=== PATIENT | male | born 1960 | race Caucasian/White ===

== ENCOUNTER 2017-08-31 07:50 | Emergency (ER) | payer SELFPAY ==
[2017-08-31 07:56] VITALS: RESP 18; TEMP 97.9
--- NOTE | 2017-08-31 08:12 | ED ---
SOB HPI - General Chief Complaint: Shortness of Breath Stated Complaint: Difficulty Breathing Time Seen by Provider: 08/31/17 07:57 Source: patient, RN notes reviewed Mode of arrival: ambulatory Limitations: no limitations - History of Present Illness Initial Comments: This is a 57-year-old male with a history of smoking for many years but no known diagnosis of any heart or lung disease who states he's had difficulty breathing exertional dyspnea cough with keating green thick phlegm and some occasional spots of bright red blood in it for the past 4-5 days. He states the friend did give him penicillin 500 mg he states she's taken a total of 3500 mg SR with no improvement. He has had some rhinorrhea no sore throat no earaches no chest pain no other modifying symptoms. MD Complaint: shortness of breath, cough - Related Data Previous Rx's Medication Instructions Recorded Ipratropium/Albuterol Sulfate 1 puff INHALATION QID #1 inhaler 08/31/17 [Combivent Respimat Inhaler] methylPREDNISolone Dose Pack 4 mg PO DIRECTED #21 package 08/31/17 [Medrol Dose Pack] Allergies Allergy/AdvReac Type Severity Reaction Status Date / Time Sulfa (Sulfonamide Allergy Anaphylaxis Verified 08/31/17 07:56 Antibiotics) Review of Systems ROS Statement: Those systems with pertinent positive or pertinent negative responses have been documented in the HPI. ROS Other: All systems not noted in ROS Statement are negative. Past Medical History Past Medical History: No Reported History History of Any Multi-Drug Resistant Organisms: None Reported Past Surgical History: Hernia Repair Past Psychological History: No Psychological Hx Reported Smoking Status: Current every day smoker Past Alcohol Use History: Occasional Past Drug Use History: None Reported General Exam - General Exam Comments Initial Comments: This is a well-developed well-nourished awake alert oriented times 3 male Limitations: no limitations General appearance: alert, anxious Head exam: Present: atraumatic, normocephalic, normal inspection Eye exam: Present: normal appearance, PERRL, EOMI. Absent: scleral icterus, conjunctival injection, periorbital swelling ENT exam: Present: mucous membranes dry Neck exam: Present: normal inspection. Absent: tenderness, meningismus, lymphadenopathy Respiratory exam: Present: decreased breath sounds. Absent: respiratory distress, wheezes, rales, rhonchi, stridor Cardiovascular Exam: Present: normal rhythm, tachycardia, normal heart sounds. Absent: systolic murmur, diastolic murmur, rubs, gallop, clicks GI/Abdominal exam: Present: soft, normal bowel sounds. Absent: distended, tenderness, guarding, rebound, rigid Extremities exam: Present: normal inspection, full ROM, normal capillary refill. Absent: tenderness, pedal edema, joint swelling, calf tenderness Back exam: Present: normal inspection Neurological exam: Present: alert, oriented X3, CN II-XII intact Psychiatric exam: Present: normal affect, normal mood Skin exam: Present: warm, dry, intact, normal color. Absent: rash Course Vital Signs 08/31/17 08/31/17 08/31/17 07:52 08:27 08:36 Temperature 97.9 F Pulse Rate 112 H 91 95 Respiratory 18 Rate Blood Pressure 172/81 O2 Sat by Pulse 93 L Oximetry 08/31/17 08:49 Temperature Pulse Rate 98 Respiratory 18 Rate Blood Pressure 158/94 O2 Sat by Pulse 93 L Oximetry Medical Decision Making - Medical Decision Making Reevaluation patient reveals increased aeration he feels like he is breathing better we did discuss smoking cessation for about 3.1 minutes. Patient will be discharged the presentation consistent with a bronchospasm and bronchitis. He will be placed on oral steroids and a copy of an inhaler. - Lab Data Result diagrams: 08/31/17 08:30 08/31/17 08:30 Lab Results 08/31/17 08/31/17 08/31/17 Range/Units 08:12 08:30 08:30 WBC 14.0 H (3.8-10.6) k/uL RBC 4.87 (4.30-5.90) m/uL Hgb 14.8 (13.0-17.5) gm/dL Hct 44.8 (39.0-53.0) % MCV 92.1 (80.0-100.0) fL MCH 30.4 (25.0-35.0) pg MCHC 33.0 (31.0-37.0) g/dL RDW 12.9 (11.5-15.5) % Plt Count 243 (150-450) k/uL Neutrophils % 69 % Lymphocytes % 21 % Monocytes % 5 % Eosinophils % 2 % Basophils % 0 % Neutrophils # 9.7 H (1.3-7.7) k/uL Lymphocytes # 3.0 (1.0-4.8) k/uL Monocytes # 0.7 (0-1.0) k/uL Eosinophils # 0.3 (0-0.7) k/uL Basophils # 0.1 (0-0.2) k/uL PT (9.0-12.0) sec INR (<1.2) APTT (22.0-30.0) sec D-Dimer (<0.60) mg/L FEU Sodium (137-145) mmol/L Potassium (3.5-5.1) mmol/L Chloride (98-107) mmol/L Carbon Dioxide (22-30) mmol/L Anion Gap mmol/L BUN (9-20) mg/dL Creatinine (0.66-1.25) mg/dL Est GFR (CKD-EPI)AfAm (>60 ml/min/1.73 sqM) Est GFR (CKD-EPI)NonAf (>60 ml/min/1.73 sqM) Glucose (74-99) mg/dL Calcium (8.4-10.2) mg/dL Magnesium (1.6-2.3) mg/dL Total Bilirubin (0.2-1.3) mg/dL AST (17-59) U/L ALT (21-72) U/L Alkaline Phosphatase (38-126) U/L Total Creatine Kinase 71 (55-170) U/L CK-MB (CK-2) 0.8 (0.0-2.4) ng/mL CK-MB (CK-2) Rel Index 1.1 Troponin I <0.012 (0.000-0.034) ng/mL NT-Pro-B Natriuret Pep pg/mL Total Protein (6.3-8.2) g/dL Albumin (3.5-5.0) g/dL Influenza Type A RNA Not Detected (Not Detectd) Influenza Type B (PCR) Not Detected (Not Detectd) 08/31/17 08/31/17 08/31/17 Range/Units 08:30 08:30 08:30 WBC (3.8-10.6) k/uL RBC (4.30-5.90) m/uL Hgb (13.0-17.5) gm/dL Hct (39.0-53.0) % MCV (80.0-100.0) fL MCH (25.0-35.0) pg MCHC (31.0-37.0) g/dL RDW (11.5-15.5) % Plt Count (150-450) k/uL Neutrophils % % Lymphocytes % % Monocytes % % Eosinophils % % Basophils % % Neutrophils # (1.3-7.7) k/uL Lymphocytes # (1.0-4.8) k/uL Monocytes # (0-1.0) k/uL Eosinophils # (0-0.7) k/uL Basophils # (0-0.2) k/uL PT 9.3 (9.0-12.0) sec INR 0.9 (<1.2) APTT 22.4 (22.0-30.0) sec D-Dimer 0.45 (<0.60) mg/L FEU Sodium 145 (137-145) mmol/L Potassium 4.7 (3.5-5.1) mmol/L Chloride 106 (98-107) mmol/L Carbon Dioxide 24 (22-30) mmol/L Anion Gap 15 mmol/L BUN 20 (9-20) mg/dL Creatinine 0.71 (0.66-1.25) mg/dL Est GFR (CKD-EPI)AfAm >90 (>60 ml/min/1.73 sqM) Est GFR (CKD-EPI)NonAf >90 (>60 ml/min/1.73 sqM) Glucose 189 H (74-99) mg/dL Calcium 9.8 (8.4-10.2) mg/dL Magnesium 2.0 (1.6-2.3) mg/dL Total Bilirubin 0.4 (0.2-1.3) mg/dL AST 15 L (17-59) U/L ALT 24 (21-72) U/L Alkaline Phosphatase 64 (38-126) U/L Total Creatine Kinase (55-170) U/L CK-MB (CK-2) (0.0-2.4) ng/mL CK-MB (CK-2) Rel Index Troponin I (0.000-0.034) ng/mL NT-Pro-B Natriuret Pep 84 pg/mL Total Protein 6.8 (6.3-8.2) g/dL Albumin 4.5 (3.5-5.0) g/dL Influenza Type A RNA (Not Detectd) Influenza Type B (PCR) (Not Detectd) - EKG Data -: EKG Interpreted by Me EKG shows normal: sinus rhythm (Sinus rhythm rate of 89. Interval 158 QRS duration 92 QT since QTC 358/[address].) - Radiology Data Radiology results: report reviewed (HEENT shows no evidence of infiltrate there is evidence of some expansion of the right eighth rib the patient believes he had rib fractures at this location of the past he was informed of the recommendations radiology.), image reviewed Disposition Clinical Impression: Acute bronchospasm, Bronchitis Disposition: HOME SELF-CARE Condition: Good Instructions: Bronchospasm (ED), Acute Bronchitis (ED) Prescriptions: Ipratropium/Albuterol Sulfate [Combivent Respimat Inhaler] 1 puff INHALATION QID #1 inhaler methylPREDNISolone Dose Pack [Medrol Dose Pack] 4 mg PO DIRECTED #21 package Is patient prescribed a controlled substance at d/c from ED?: No Referrals: None,Stated [Primary Care Provider] - 1-2 days Gretchen Johnston MD [STAFF PHYSICIAN] - 1-2 days
[2017-08-31] MEDS ORDERED: IPRATROPIUM-ALBUTEROL 3 ML NEB INHALATION STA (08:19)
[2017-08-31 08:37] LABS: Basophils # (A) 0.1 k/uL (0-0.2); Basophils % (A) 0 %; Eosinophils # (A) 0.3 k/uL (0-0.7); Eosinophils % (A) 2 %; HCT 44.8 % (39.0-53.0); HGB 14.8 gm/dL (13.0-17.5); Lymphocytes % (A) 21 %; MCH 30.4 pg (25.0-35.0); MCV 92.1 fL (80.0-100.0); Monocytes # (A) 0.7 k/uL (0-1.0); Monocytes % (A) 5 %; Neutrophils # (A) 9.7 k/uL (1.3-7.7); Neutrophils % (A) 69 %; Platelet Count 243 k/uL (150-450); RBC 4.87 m/uL (4.30-5.90); RDW 12.9 % (11.5-15.5)
[2017-08-31 08:45] LABS: ALT 24 U/L (21-72); AST 15 U/L (17-59); Albumin 4.5 g/dL (3.5-5.0); Alkaline Phosphatase 64 U/L (38-126); Anion Gap 15 mmol/L; Blood Urea Nitrogen 20 mg/dL (9-20); Calcium 9.8 mg/dL (8.4-10.2); Carbon Dioxide 24 mmol/L (22-30); Chloride 106 mmol/L (98-107); Glucose 189 mg/dL (74-99); Potassium 4.7 mmol/L (3.5-5.1); Sodium 145 mmol/L (137-145); Total Bilirubin 0.4 mg/dL (0.2-1.3); Total Protein 6.8 g/dL (6.3-8.2)
[2017-08-31 08:49] LABS: D-Dimer 0.45 mg/L FEU (<0.60); INR 0.9 (<1.2); Partial Thromboplastin Time 22.4 sec (22.0-30.0); Prothrombin Time 9.3 sec (9.0-12.0)
[2017-08-31 08:51] VITALS: BP 158/94; PULSE 98
--- NOTE | 2017-08-31 09:01 | XR ---
EXAMINATION TYPE: XR chest 2V DATE OF EXAM: 08/31/2017 HISTORY: difficulty breathing. REFERENCE: Previous study dated 07/04/2011. FINDINGS: Lung volumes are prominent. The lungs are clear. Pleural spaces are clear. The heart is not enlarged. The right eighth rib appears expanded posteriorly. This may be secondary to callus from a previous fracture. Expansile lesion could not be excluded. IMPRESSION: 1. NO ACUTE INTRATHORACIC ABNORMALITY. 2. EXPANSION OF THE RIGHT EIGHTH RIB POSTERIORLY. A NONEMERGENT CT SCAN OF THE CHEST WOULD BE SUGGEST ED.
[2017-08-31 09:06] LABS: Creatine Kinase 71 U/L (55-170)
[2017-08-31 09:18] LABS: Creatine Kinase MB 0.8 ng/mL (0.0-2.4); Troponin I <0.012 ng/mL (0.000-0.034)
[2017-08-31] MEDS ORDERED: predniSONE 50 MG TAB PO STA (09:27)
== END 2017-08-31 09:34 | disposition home or self-care (01) ==
LOC: EC 07:50
DX: J40 Bronchitis, not specified as acute or chronic (principal); J98.01 Acute bronchospasm; R00.0 Tachycardia, unspecified; J34.89 Other specified disorders of nose and nasal sinuses; F17.200 Nicotine dependence, unspecified, uncomplicated; Z88.2 Allergy status to sulfonamides
CPT/HCPCS: 99285; 99406; 36415; 94640; 93005; 85379; 83880; 80053; 82550; 82553; 83735; 84484; 85025; 85610; 85730; 87502; 71046; J7512

== ENCOUNTER 2019-10-27 19:15 | Emergency (ER) | payer OTHER ==
[2019-10-27 19:27] VITALS: BP 128/81; PULSE 89; RESP 18; TEMP 97.9
== END 2019-10-27 19:44 | disposition left against medical advice (07) ==
LOC: EC 19:15
DX: M79.89 Other specified soft tissue disorders (principal); E11.9 Type 2 diabetes mellitus without complications
CPT/HCPCS: 99499

== ENCOUNTER 2019-11-07 10:56 | Observation (INO) | payer OTHER ==
[2019-11-07] MEDS ORDERED: SODIUM CHLORIDE 0.9% 1,000 ML IV ONE (11:21)
[2019-11-07] MEDS ORDERED: PIPERACILLIN-TAZOBACTAM 3.375 GM in SODIUM CHLORIDE 0.9% 100 ML IVPB STA (11:21)
--- NOTE | 2019-11-07 11:29 | ED ---
Lower Extremity Injury HPI - General Chief Complaint: Extremity Injury, Lower Stated Complaint: Foot swelling Time Seen by Provider: 11/07/19 11:06 Source: patient, RN notes reviewed, old records reviewed Mode of arrival: ambulatory Limitations: no limitations - History of Present Illness Initial Comments: This is a 5-year-old male presents for in terms today for wound over his left great toe and ulceration. He is diabetic. He reports she's noticed to be increasingly worse and swollen over the past 3 weeks. She originally is from [place] and is here staying in [place] [facility] [place] Patient states that he has had no fevers or chills. He reports diminished sensation but does complain of some swelling and pain up the dorsum of the foot and into the ankle. Patient states that he's had blood sugars run 150-160 and manages his b lood sugar with metformin. He does not have any previous wound care. - Related Data Previous Rx's Medication Instructions Recorded Ipratropium/Albuterol Sulfate 1 puff INHALATION QID #1 inhaler 08/31/17 [Combivent Respimat Inhaler] methylPREDNISolone Dose Pack 4 mg PO DIRECTED #21 package 08/31/17 [Medrol Dose Pack] Allergies Allergy/AdvReac Type Severity Reaction Status Date / Time Sulfa (Sulfonamide Allergy Anaphylaxis Verified 11/07/19 10:58 Antibiotics) Review of Systems ROS Statement: Those systems with pertinent positive or pertinent negative responses have been documented in the HPI. ROS Other: All systems not noted in ROS Statement are negative. 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 Limitations: no limitations General appearance: alert, in no apparent distress Head exam: Present: atraumatic Eye exam: Present: normal appearance, PERRL, EOMI. Absent: scleral icterus, conjunctival injection, periorbital swelling ENT exam: Present: normal exam, mucous membranes moist Neck exam: Present: normal inspection Respiratory exam: Present: normal lung sounds bilaterally. Absent: respiratory distress, wheezes, rales, rhonchi, stridor Cardiovascular Exam: Present: regular rate, normal rhythm, normal heart sounds. Absent: systolic murmur, diastolic murmur, rubs, gallop, clicks GI/Abdominal exam: Present: soft, normal bowel sounds. Absent: distended, tenderness, guarding, rebound, rigid Extremities exam: Present: normal inspection, full ROM, normal capillary refill. Absent: tenderness, pedal edema, joint swelling, calf tenderness Left Lower Leg exam: Present: normal inspection, full ROM Ankle exam: Present: full ROM, swelling, erythema. Absent: normal inspection Foot/Toe exam: Present: normal inspection, full ROM, erythema (Patient has evidence of an ulceration on the left great toe measuring 3cm by 3cm. Fat layer exposed ) Neurovascular tendon exam: Present: no vascular compromise Gait: observed and normal Back exam: Present: normal inspection Neurological exam: Present: alert, oriented X3, CN II-XII intact Psychiatric exam: Present: normal affect, normal mood Skin exam: Present: warm, dry, intact, normal color. Absent: rash Course Vital Signs 11/07/19 10:59 Temperature 98 F Pulse Rate 107 H Respiratory 18 Rate Blood Pressure 170/99 O2 Sat by Pulse 97 Oximetry Medical Decision Making - Medical Decision Making Patient is a 5-year-old male who presents emergency department today with history of diabetes with left great foot cellulitis ankle cellulitis related to an ulceration on his great toe. The ulceration is been increasing in size for the past 3 weeks. His evidence of fat layer exposed. Wound culture is obtained. Lab work was reviewed relatively unremarkable. Patient was started on IV Zosyn and vancomycin. Wound culture and blood culture were completed. X- ray today shows no sign of osteomyelitis. I discussed at this time to admit the Patient with consults to wound care. Patient was hesitant to this but eventually agrees. Discussed the The case with Dr. Rodriguez. - Lab Data Result diagrams: 11/07/19 11:20 11/07/19 11:20 Lab Results 11/07/19 11/07/19 11/07/19 Range/Units 11:20 11:20 11:20 WBC 10.4 (3.8-10.6) k/uL RBC 5.02 (4.30-5.90) m/uL Hgb 16.9 (13.0-17.5) gm/dL Hct 52.4 (39.0-53.0) % MCV 104.3 H (80.0-100.0) fL MCH 33.6 (25.0-35.0) pg MCHC 32.2 (31.0-37.0) g/dL RDW 13.3 (11.5-15.5) % Plt Count 248 (150-450) k/uL Neutrophils % 66 % Lymphocytes % 21 % Monocytes % 5 % Eosinophils % 5 % Basophils % 1 % Neutrophils # 6.8 (1.3-7.7) k/uL Lymphocytes # 2.2 (1.0-4.8) k/uL Monocytes # 0.6 (0-1.0) k/uL Eosinophils # 0.6 (0-0.7) k/uL Basophils # 0.1 (0-0.2) k/uL Macrocytosis Slight Sodium 141 (137-145) mmol/L Potassium 4.8 (3.5-5.1) mmol/L Chloride 105 (98-107) mmol/L Carbon Dioxide 30 (22-30) mmol/L Anion Gap 6 mmol/L BUN 16 (9-20) mg/dL Creatinine 0.65 L (0.66-1.25) mg/dL Est GFR (CKD-EPI)AfAm >90 (>60 ml/min/1.73 sqM) Est GFR (CKD-EPI)NonAf >90 (>60 ml/min/1.73 sqM) Glucose 112 H (74-99) mg/dL Plasma Lactic Acid Fan 2.0 (0.7-2.0) mmol/L Calcium 9.4 (8.4-10.2) mg/dL Total Bilirubin 0.4 (0.2-1.3) mg/dL AST 22 (17-59) U/L ALT 14 (4-49) U/L Alkaline Phosphatase 65 (38-126) U/L Total Protein 6.9 (6.3-8.2) g/dL Albumin 4.0 (3.5-5.0) g/dL - Radiology Data Radiology results: report reviewed X-ray shows soft tissue swelling the fifth metatarsophalangeal joint space. Ulceration of the distal great toe. No suspicious cortical erosion is identified. Hallux valgus deformity. Disposition Clinical Impression: Foot ulceration, Diabetes, Cellulitis Disposition: ADMITTED IP TO THIS HOSP Condition: Stable Is patient prescribed a controlled substance at d/c from ED?: No Referrals: Nonstaff,Physician [Primary Care Provider] - 1-2 days Time of Disposition: 12:49
[2019-11-07 11:41] LABS: Basophils # (A) 0.1 k/uL (0-0.2); Basophils % (A) 1 %; Eosinophils # (A) 0.6 k/uL (0-0.7); Eosinophils % (A) 5 %; HCT 52.4 % (39.0-53.0); HGB 16.9 gm/dL (13.0-17.5); Lymphocytes # (A) 2.2 k/uL (1.0-4.8); Lymphocytes % (A) 21 %; MCH 33.6 pg (25.0-35.0); MCHC 32.2 g/dL (31.0-37.0); MCV 104.3 fL (80.0-100.0); Macrocytosis Slight; Mean Platelet Volume 7.9; Monocytes # (A) 0.6 k/uL (0-1.0); Monocytes % (A) 5 %; Neutrophils # (A) 6.8 k/uL (1.3-7.7); Neutrophils % (A) 66 %; Platelet Count 248 k/uL (150-450); RBC 5.02 m/uL (4.30-5.90); RDW 13.3 % (11.5-15.5); WBC 10.4 k/uL (3.8-10.6)
[2019-11-07 11:52] LABS: ALT 14 U/L (4-49); AST 22 U/L (17-59); African American GFR (CKD) >90 (>60 ml/min/1.73 sqM); Alkaline Phosphatase 65 U/L (38-126); Anion Gap 6 mmol/L; Blood Urea Nitrogen 16 mg/dL (9-20); Calcium 9.4 mg/dL (8.4-10.2); Carbon Dioxide 30 mmol/L (22-30); Chloride 105 mmol/L (98-107); Glucose 112 mg/dL (74-99); Non-African American GFR(CKD) >90 (>60 ml/min/1.73 sqM); Potassium 4.8 mmol/L (3.5-5.1); Sodium 141 mmol/L (137-145); Total Bilirubin 0.4 mg/dL (0.2-1.3); Total Protein 6.9 g/dL (6.3-8.2)
[2019-11-07] MEDS: SODIUM CHLORIDE 0.9% 1,000 ML IV SCH ×2 (11:52→20:39)
--- NOTE | 2019-11-07 12:03 | XR ---
EXAMINATION TYPE: XR foot complete RT DATE OF EXAM: 11/07/2019 COMPARISON: None HISTORY: Foot ulceration distal great toe TECHNIQUE: Three-view left foot FINDINGS: Hallux valgus deformity is present. Joint space narrowing of the proximal distal interphala ngeal joint spaces is present. No acute fracture or dislocation is evident. Hammertoes may be present. Soft tissue swelling is over the fifth metacarpal tarsal phalangeal joint space. There is ulceration of the distal great toe. No suspicious cortical erosion is evident. 3 phase bone scan could be performed for sufficient clinical suspicion of osteomyelitis. IMPRESSION: 1. Soft tissue swelling fifth metatarsal phalangeal joint space. 2. Ulceration of the distal great toe. No suspicious cortical erosion is identified. 3. Hallux valgus deformity.
[2019-11-07] MEDS ORDERED: VANCOMYCIN IV PER PHARMACY 1 EACH MISC MISCELLANE PRN (12:45)
[2019-11-07] MEDS ORDERED: IBUPROFEN 400 MG TAB PO PRN (12:50)
[2019-11-07] MEDS ORDERED: KETOROLAC 30 MG/ML 1 ML VIAL IVP PRN (12:50)
[2019-11-07] MEDS ORDERED: ACETAMINOPHEN TAB 325 MG TAB PO PRN (12:50)
[2019-11-07] MEDS ORDERED: NALOXONE 0.4 MG/ML 1 ML VIAL IV PRN (12:50)
[2019-11-07] MEDS ORDERED: oxyCODONE-APAP 5-325MG 1 EACH TAB PO PRN (12:50)
[2019-11-07] MEDS ORDERED: VANCOMYCIN 1,750 MG in SODIUM CHLORIDE 0.9% 500 ML 500 ML IVPB STA (12:51)
[2019-11-07] MEDS ORDERED: HYDROmorphone 0.5 MG/0.5 ML SYRINGE IVP PRN (14:42)
[2019-11-07] MEDS ORDERED: ALPRAZolam 0.25 MG TAB PO PRN (14:42)
[2019-11-07] MEDS ORDERED: TEMAZEPAM 15 MG CAP PO PRN (14:42)
[2019-11-07] MEDS: HEPARIN SODIUM,PORCINE 5,000 UNIT/ML 1 ML VIAL SQ SCH ×2 (15:37→20:39)
[2019-11-07] MEDS ORDERED: hydrALAZINE HCL 20 MG/ML 1 ML VIAL IVP PRN (15:47)
[2019-11-07] MEDS ORDERED: PIPERACILLIN-TAZOBACTAM 3.375 GM in SODIUM CHLORIDE 0.9% 100 ML IVPB SCH (16:00)
[2019-11-07] MEDS: lisinopriL 10 MG TAB PO SCH ×2 (16:48→20:39)
[2019-11-07 16:50] LABS: Glucose,Whole Blood 91 mg/dL (75-99)
--- NOTE | 2019-11-07 16:58 | P.GSCN ---
History of Present Illness History of present illness: 59-year-old diabetic male, patient came to the emergency room with a history of left foot big toe chronic wound, patient had this wound for the last 1 month she's been treating at home with Salt and Iodine by Himself Has Not Been to the Hospital. Medical History #1 Is Diabetes #2 Is Hypertension Personal History Patient Has History of Smoking Continue to Smoke Neck Examination Neck Is Supple No Bruit Appreciated Chest Is Clear First and Second Sound Normal Abdomen Soft Nontender Vascular Examination Femorals Are 1+ Bilateral Posterior Tibial Dorsal Pedis Not Palpable Left Foot Has a Doppler Signal of the Dorsal Aspect of the Foot Left Foot Is Swollen and Tender Left Big Toe Has a Large Ulcer at the Tip of the Big Toe. 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",herniated disc History of Any Multi-Drug Resistant Organisms: None Reported Past Surgical History: Hernia Repair Past Psychological History: No Psychological Hx Reported Smoking Status: Former smoker Past Alcohol Use History: Occasional Past Drug Use History: None Reported - Past Family History Mother Family Medical History: Cancer Additional Family Medical History / Comment(s): small cell carcinoma Father Family Medical History: Diabetes Mellitus Sister(s) Family Medical History: Cancer Medications and Allergies Home Medications Medication Instructions Recorded Confirmed Type Metformin Unknown Dose 0 mg PO DAILY 11/07/19 11/07/19 History Allergies Allergy/AdvReac Type Severity Reaction Status Date / Time Sulfa (Sulfonamide Allergy Anaphylaxis Verified 11/07/19 10:58 Antibiotics) Surgical - Exam Vital Signs Temp Pulse Resp BP Pulse Ox 98 F 107 H 18 170/99 97 11/07/19 10:59 11/07/19 10:59 11/07/19 10:59 11/07/19 10:59 11/07/19 10:59 Results - Labs 11/07/19 11:20 11/07/19 11:20 Abnormal Lab Results - Last 24 Hours (Table) 11/07/19 11/07/19 Range/Units 11:20 11:20 MCV 104.3 H (80.0-100.0) fL Creatinine 0.65 L (0.66-1.25) mg/dL Glucose 112 H (74-99) mg/dL Diabetes panel 11/07/19 Range/Units 11:20 Sodium 141 (137-145) mmol/L Potassium 4.8 (3.5-5.1) mmol/L Chloride 105 (98-107) mmol/L Carbon Dioxide 30 (22-30) mmol/L BUN 16 (9-20) mg/dL Creatinine 0.65 L (0.66-1.25) mg/dL Glucose 112 H (74-99) mg/dL Calcium 9.4 (8.4-10.2) mg/dL AST 22 (17-59) U/L ALT 14 (4-49) U/L Alkaline Phosphatase 65 (38-126) U/L Total Protein 6.9 (6.3-8.2) g/dL Albumin 4.0 (3.5-5.0) g/dL Calcium panel 11/07/19 Range/Units 11:20 Calcium 9.4 (8.4-10.2) mg/dL Albumin 4.0 (3.5-5.0) g/dL Pituitary panel 11/07/19 Range/Units 11:20 Sodium 141 (137-145) mmol/L Potassium 4.8 (3.5-5.1) mmol/L Chloride 105 (98-107) mmol/L Carbon Dioxide 30 (22-30) mmol/L BUN 16 (9-20) mg/dL Creatinine 0.65 L (0.66-1.25) mg/dL Glucose 112 H (74-99) mg/dL Calcium 9.4 (8.4-10.2) mg/dL Adrenal panel 11/07/19 Range/Units 11:20 Sodium 141 (137-145) mmol/L Potassium 4.8 (3.5-5.1) mmol/L Chloride 105 (98-107) mmol/L Carbon Dioxide 30 (22-30) mmol/L BUN 16 (9-20) mg/dL Creatinine 0.65 L (0.66-1.25) mg/dL Glucose 112 H (74-99) mg/dL Calcium 9.4 (8.4-10.2) mg/dL Total Bilirubin 0.4 (0.2-1.3) mg/dL AST 22 (17-59) U/L ALT 14 (4-49) U/L Alkaline Phosphatase 65 (38-126) U/L Total Protein 6.9 (6.3-8.2) g/dL Albumin 4.0 (3.5-5.0) g/dL
--- NOTE | 2019-11-07 17:07 | HP ---
HISTORY AND PHYSICAL CHIEF COMPLAINT: Pain and swelling of the left great toe and ulceration. HISTORY OF PRESENT ILLNESS: This 59-year-old gentleman with a past medical history of COPD, diabetes, hypertension, history of rib tumor, being followed by primary physician in the [place] area, has been splitting time between [place] and [place]. The patient is noted to have ulcerations and swelling of the left great toe over the past 3 weeks. Because of lack of improvement, patient came to [facility] and was admitted for further evaluation. Patient also had peripheral neuropathy of the legs and the blood sugars have been apparently between 150 and 160. In the ER, the creatinine . A foot x- ray was also done which showed soft tissue swelling of the 5th metatarsal joint and ulceration of the 2nd distal great toe was also noted. No suspicious cortical reaction suspected, hallux valgus deformity is also noted. Multiple consults are being sought. There is no history of fever, rigors, no history of headache, loss of consciousness or seizures. PAST MEDICAL HISTORY: History of COPD, diabetes, hypertension. MEDICATIONS: Prior to admission: Home medications are: Metformin daily. ALLERGIES: SULFA. FAMILY HISTORY: No history of heart disease or strokes family. SOCIAL HISTORY: Previous history of smoking. No history of current smoking or alcohol intake. REVIEW OF SYSTEMS: ENT: No diminished vision. No diminished hearing. CARDIOVASCULAR: No angina or palpitations. RESPIRATIONS: No cough. No hemoptysis. GI no nausea. no dysuria. Nervous system: No numbness or weakness. ALLERGY/IMMUNOLOGY: No asthma or hayfever. MUSCULOSKELETAL: As mentioned earlier. HEMATOLOGY/ONCOLOGY: No history of anemia. ENDOCRINE: As mentioned earlier. CONSTITUTIONAL: As mentioned. DERMATOLOGY: As mentioned earlier. RHEUMATOLOGY negative. PSYCHIATRY as mentioned. PHYSICAL EXAMINATION: The patient is alert and oriented times three. Pulse 81. Blood pressure 150/90, respiration 18, temperature 98.3, pulse ox 99 on room air. HEENT: Conjunctivae normal. NECK: No JVD. CARDIOVASCULAR: S1, S2. RESPIRATORY: Breath sounds diminished in the bases. No rhonchi. No crackles. ABDOMEN: Soft, nontender. No mass palpable. LEGS: Significant pain and swelling of the right foot and significant ulceration of the left big toe also present, tender. Pulses diminished: NERVOUS SYSTEM: Higher functions as mentioned. Moves all 4 limbs. No focal motor or sensory deficits. LYMPHATICS: No lymph nodes palpable in the neck, axillae or groin. SKIN as mentioned. JOINTS no active deforming arthropathy. LAB STUDIES: WBC 10.5, MCV 104, and glucose 112. ASSESSMENT: 1. Acute left great toe infection cellulitis with failure of outpatient treatment with possible osteomyelitis. 2. Hallux valgus deformity. 3. Diabetes mellitus type 2. 4. Increased MCV. 5. History of chronic obstructive pulmonary disease. 6. Hypertension. 7. History of rib tumor. 8. Remote history of nicotine dependence. 9. FULL CODE. RECOMMENDATIONS AND DISCUSSION: This 59-year-old gentleman who presented with multiple complex medical issues, we will monitor the patient closely, continue the current medications, and broad- spectrum IV antibiotics. Infectious disease evaluation. Vascular surgery consultation. I would also recommend a bone scan. Guarded prognosis because of multiple complex medical issues. Further recommendations to follow. ANDRY / TERRI: [id number] / MTDD
[2019-11-07] MEDS: INSULIN ASPART (NovoLOG) 100 UNIT/ML VIAL SQ SCH ×2 (17:41→20:24)
[2019-11-07] MEDS: metFORMIN 500 MG TAB PO SCH (17:59)
[2019-11-07 19:26] LABS: Appearance,Urine Clear (Clear); Bilirubin,Urine Negative (Negative); Blood,Urine Negative (Negative); Color,Urine Yellow; Glucose,Urine (UA) Negative (Negative); Ketones,Urine Negative (Negative); Leukocyte Esterase,Urine Negative (Negative); Nitrite,Urine Negative (Negative); Protein,Urine Negative (Negative); Specific Gravity,Urine 1.021 (1.001-1.035); Urobilinogen,Urine <2.0 mg/dL (<2.0)
[2019-11-07 20:23] LABS: Glucose,Whole Blood 108 mg/dL (75-99)
[2019-11-07] MEDS: VANCOMYCIN 1,500 MG in SODIUM CHLORIDE 0.9% 250 ML IVPB SCH (20:39)
[2019-11-07] MEDS: AMPICILLIN-SULBACTAM 3 GM in SODIUM CHLORIDE 0.9% 100 ML IVPB SCH (23:33)
--- NOTE | 2019-11-07 23:40 | P.CONS ---
History of Present Illness - Reason for Consult Consult date: 11/07/19 Left diabetic foot ulcer Requesting physician: Izzy Guerrero - Chief Complaint Left big toe wound x one month - History of Present Illness Patient is 59-year-old male with a past medical history significant for diabetes mellitus in this patient presented to the ER with chief complaints of a nonhealing wound on the tip of his left big toe that started about a month ago and patient has been taking care of it at home with some abscess and Betadine over the last few days the patient noticed his left big toe as well as foot has become more swollen and red that concerned him and see presented to the hospital patient to have diabetic neuropathy has denies significant pain however he did have more of a pressure sensation in the area in intensity is more of a 4 out of 10 and no radiation patient did have some drainage from his left big toe wound but no foul-smelling he did have some chills but denies high-grade fever with these symptoms the patient was evaluated by the ER physician on arrival to the patient has been afebrile his white count was normal patient did have x-rays of the left foot which did not show any cortical erosions patient was started on vancomycin and Zosyn and admitted to the hospital infectious disease was consulted for further management of antibiotic therapy Review of Systems Positive point has been mentioned in the HPI rest of the systems are negative 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",herniated disc History of Any Multi-Drug Resistant Organisms: None Reported Past Surgical History: Hernia Repair Past Psychological History: No Psychological Hx Reported Smoking Status: Former smoker Past Alcohol Use History: Occasional Past Drug Use History: None Reported - Past Family History Mother Family Medical History: Cancer Additional Family Medical History / Comment(s): small cell carcinoma Father Family Medical History: Diabetes Mellitus Sister(s) Family Medical History: Cancer Medications and Allergies Home Medications Medication Instructions Recorded Confirmed Type Metformin Unknown Dose 0 mg PO DAILY 11/07/19 11/07/19 History Allergies Allergy/AdvReac Type Severity Reaction Status Date / Time Sulfa (Sulfonamide Allergy Anaphylaxis Verified 11/07/19 10:58 Antibiotics) Physical Exam Vitals: Vital Signs Temp Pulse Pulse Resp BP BP Pulse Ox 11/07/19 19:20 97.6 F 72 16 161/96 97 11/07/19 18:25 73 163/89 11/07/19 15:28 74 161/108 11/07/19 14:25 98.5 F 75 157/104 97 11/07/19 13:30 98.3 F 81 18 159/88 99 11/07/19 12:55 81 20 155/78 97 11/07/19 10:59 98 F 107 H 18 170/99 97 Intake and Output 11/07/19 11/07/19 11/07/19 06:59 14:59 22:59 Other: Voiding Method Toilet Weight 90.718 kg 90.718 kg GENERAL DESCRIPTION: Middle-aged male lying in bed, no distress. No tachypnea or accessory muscle of respiration use. HEENT: Shows Pallor , no scleral icterus. Oral mucous membrane is dry. No pharyngeal erythema or thrush NECK: Trachea central, no thyromegaly. LUNGS: Unlabored breathing. Clear to auscultation anteriorly. No wheeze or crackle. HEART: S1, S2, regular rate and rhythm. No loud murmur ABDOMEN: Soft, no tenderness , guarding or rigidity, no organomegaly EXTREMITIES: 2+ edema of feet. Left big toe significant swollen and red with a wound on the tip with some soft tissue no foul-smelling drainage SKIN: No rash, no masses palpable. NEUROLOGICAL: The patient is awake, alert, oriented x3, mood and affect normal. Results CBC & Chem 7: 11/07/19 11:20 11/07/19 11:20 Labs: Abnormal Lab Results - Last 24 Hours (Table) 11/07/19 11/07/19 Range/Units 11:20 11:20 MCV 104.3 H (80.0-100.0) fL Creatinine 0.65 L (0.66-1.25) mg/dL Glucose 112 H (74-99) mg/dL Microbiology - Last 24 Hours (Table) 11/07/19 11:20 Wound Culture - Preliminary Toe - Left First Assessment and Plan Assessment: 1- patient with left big toe Nonhealing wound that has been going on for almost a month in this patient underlying diabetes mellitus initial x-ray did not show any cortical erosion however underlying clinical suspicious is high for osteomyelitis and will need to cover for the polymicrobial jessica usually associated with the symptom of infection 2-sulfa ALLERGY (1) Diabetic infection of left foot Current Visit: Yes Status: Acute Code(s): E11.628 - TYPE 2 DIABETES MELLITUS WITH OTHER SKIN COMPLICATIONS; L08.9 - LOCAL INFECTION OF THE SKIN AND SUBCUTANEOUS TISSUE, UNSP SNOMED Code(s): 34516521 Plan: 1-Vancomycin pharmacy to dose target trough of 15 while watching his kidney function and Vanco trough closely 2-discontinue Zosyn and take the risk of nephrotoxicity 3-add Unasyn 3 g every 6 hours 4-we will check a bone scan We will follow on clinical condition and cultures to further adjust medication if needed Thank you for this consultation will follow this patient with you Time with Patient: Greater than 30
[2019-11-08] MEDS: VANCOMYCIN 1,500 MG in SODIUM CHLORIDE 0.9% 250 ML IVPB SCH (04:12)
[2019-11-08] MEDS: AMPICILLIN-SULBACTAM 3 GM in SODIUM CHLORIDE 0.9% 100 ML IVPB SCH ×2 (06:26→11:56)
[2019-11-08 07:25] LABS: Glucose,Whole Blood 118 mg/dL (75-99)
[2019-11-08] MEDS: INSULIN ASPART (NovoLOG) 100 UNIT/ML VIAL SQ SCH ×3 (07:26→16:28)
[2019-11-08] MEDS ORDERED: PANTOPRAZOLE 40 MG TABLET PO SCH (07:30)
[2019-11-08] MEDS: HEPARIN SODIUM,PORCINE 5,000 UNIT/ML 1 ML VIAL SQ SCH (07:57)
[2019-11-08] MEDS: SODIUM CHLORIDE 0.9% 1,000 ML IV SCH (07:59)
[2019-11-08] MEDS: metFORMIN 500 MG TAB PO SCH (07:59)
[2019-11-08] MEDS: lisinopriL 10 MG TAB PO SCH (09:48)
[2019-11-08 11:04] VITALS: BMI 24.3
[2019-11-08 11:08] LABS: Basophils # (A) 0.1 k/uL (0-0.2); Basophils % (A) 1 %; Eosinophils # (A) 0.4 k/uL (0-0.7); Eosinophils % (A) 5 %; HCT 48.6 % (39.0-53.0); HGB 15.8 gm/dL (13.0-17.5); Lymphocytes # (A) 1.4 k/uL (1.0-4.8); Lymphocytes % (A) 16 %; MCH 33.7 pg (25.0-35.0); MCHC 32.5 g/dL (31.0-37.0); MCV 103.8 fL (80.0-100.0); Macrocytosis Slight; Mean Platelet Volume 8.1; Monocytes # (A) 0.5 k/uL (0-1.0); Monocytes % (A) 6 %; Neutrophils # (A) 6.3 k/uL (1.3-7.7); Neutrophils % (A) 71 %; Platelet Count 194 k/uL (150-450); RBC 4.68 m/uL (4.30-5.90); RDW 13.3 % (11.5-15.5); WBC 8.8 k/uL (3.8-10.6)
[2019-11-08 11:17] LABS: African American GFR (CKD) >90 (>60 ml/min/1.73 sqM); Anion Gap 6 mmol/L; Blood Urea Nitrogen 11 mg/dL (9-20); C Reactive Protein 6.5 mg/L (<10.0); Calcium 8.7 mg/dL (8.4-10.2); Carbon Dioxide 26 mmol/L (22-30); Chloride 104 mmol/L (98-107); Glucose 138 mg/dL (74-99); Non-African American GFR(CKD) >90 (>60 ml/min/1.73 sqM); Potassium 4.1 mmol/L (3.5-5.1); Sodium 136 mmol/L (137-145)
[2019-11-08 11:29] LABS: Glucose,Whole Blood 148 mg/dL (75-99)
[2019-11-08 11:44] LABS: Erythrocyte Sedimentation Rate 3 mm/hr (0-15)
--- NOTE | 2019-11-08 11:52 | PN ---
PROGRESS NOTE Mr. Lopes came to the emergency room with the diagnosis of acute left great toe infection with cellulitis on the dorsal aspect of the foot and big toe. The patient treated himself at home with Epsom salt and iodine. The patient also has a history of diabetes mellitus, COPD, hypertension and peripheral vascular disease. Patient seen by the Infectious Disease. Started on antibiotic. The patient has a chronic wound on the left foot big toe involving the pulp of the big toe on the plantar aspect and also noted some cellulitis and swelling of the left foot. The patient had a bone scan done today but the results are pending. We have discussed with the patient we will start antibiotic concerning the wound which is almost chronic and most likely will need a partial toe amputation. The patient wants to try antibiotic and patient was seen by dietitian and recommended to have a Samuel treatment and the patient wants to try that treatment. If he goes home, we will follow in the wound clinic next Saturday. We have been using Medihoney gel to the wound and change dressing daily. MMODL / IJN: [id number] /
[2019-11-08] MEDS ORDERED: MULTIVITAMINS, THERA 1 EACH TAB PO SCH (12:00)
--- NOTE | 2019-11-08 12:37 | NM ---
EXAMINATION TYPE: NM bone 3 phase DATE OF EXAM: 11/08/2019 COMPARISON: 21/08/2019 HISTORY: Swelling Triple phase bone scintigraphy was performed following the injection of 23.6 mCi Tc 99m MDP. Immedia te images and 3 hours post injection images acquired. FINDINGS: There is diffuse increased perfusion to the left foot. Increased soft tissue uptake is seen involving bilateral distal feet. There is Delayed imaging demonstrates intense abnormal uptake involving the first digit of the left foot. Mild uptake involving the distal margin of the fifth and third digits of the right foot. IMPRESSION: 1. Osteomyelitis distal phalanx first digit left foot. 2. Nonspecific findings involving the right foot which could be correlated with x-ray for assessment of arthritis. Intensity of the uptake argues against osteomyelitis.
[2019-11-08] MEDS ORDERED: VANCOMYCIN 1,750 MG in SODIUM CHLORIDE 0.9% 500 ML 500 ML IVPB SCH (13:00)
[2019-11-08 15:30] VITALS: BP 155/86; PULSE 60; RESP 19; TEMP 98.1
[2019-11-08 16:24] LABS: Glucose,Whole Blood 114 mg/dL (75-99)
[2019-11-08] MEDS ORDERED: VANCOMYCIN TROUGH DUE 1 EACH MISC MISCELLANE ONE (20:00)
--- NOTE | 2019-11-08 23:45 | PN ---
PROGRESS NOTE DATE OF SERVICE: 11/08/2019 REASON FOR FOLLOWUP: Left big toe diabetic foot infection with underlying osteomyelitis. INTERVAL HISTORY: The patient is currently afebrile, has been breathing comfortably. Denies having any chest pain or any cough. No nausea, no vomiting. No abdominal pain or any worsening pain to the left big toe. PHYSICAL EXAMINATION: Blood pressure 155/86, pulse of 60, temperature 98.1. He is 99% on room air. General description is a middle-aged male lying in bed in no distress. RESPIRATORY SYSTEM: Unlabored breathing, clear to auscultation anteriorly. HEART: S1, S2. Regular rate and rhythm. ABDOMEN: Soft, no tenderness. Left big toe is currently dressed up. No obvious drainage on the dressing. LABS: White count 8.8, creatinine 0.66. Left toe culture presumptive MRSA. DIAGNOSTIC IMPRESSION AND PLAN: Patient with left big toe nonhealing wound with underlying osteomyelitis. Culture with presumptive methicillin-resistant Staphylococcus aureus. Patient is covered with vancomycin, has been advised IV antibiotic in order to help heal this infection and prevent amputation; however, the patient insisting on going home with the cultures finalized, we cannot continue outpatient oral antibiotics at this point. Continue the vancomycin. MMODL / IJN: [id number] /
--- NOTE | 2019-11-09 01:00 | PN ---
PROGRESS NOTE DATE OF SERVICE: 11/08/2019 This 59-year-old gentleman who was admitted with significant left great toe infection with failure of outpatient therapy being closely monitored at this time. Dr. Alonso has seen the patient. The bone scan is possibly positive for acute osteomyelitis. Dr. Alonso has recommended vancomycin IV and continue to monitor. The wound culture showed presumptive MRSA at this time. PAST MEDICAL HISTORY: Reviewed. REVIEW OF SYSTEMS: CARDIOVASCULAR: No angina. RESPIRATORY: As mentioned earlier. GI: As mentioned earlier. : No dysuria. NERVOUS SYSTEM: No numbness or weakness. CURRENT MEDICATIONS: Current medications are reviewed and include: 1. Tylenol. 2. Xanax. 3. Unasyn. 4. Zestril. 5. Multivitamins. Doses are reviewed. PHYSICAL EXAMINATION: Patient is alert and oriented x3. The pulse is 60, blood pressure 155/86, respiration 19, temperature 98.1, pulse ox 99% on room air. HEENT: Conjunctivae normal. NECK: No jugular venous distention. CARDIOVASCULAR: S1, S2 muffled. RESPIRATORY: Breath sounds are diminished at the bases. Scattered rhonchi and crackles. ABDOMEN: Soft, nontender. No mass palpable. LEGS: Osteomyelitis. NERVOUS SYSTEM: No focal deficits. LABS: Labs are at this time shows: WBC 8.8, hemoglobin is 15.8. Other labs are noted. Accu- Cheks noted. ASSESSMENT: 1. Acute left great toe infection with cellulitis with failure of outpatient treatment with possible osteomyelitis. 2. Hallux valgus deformity. 3. Diabetes mellitus type 2. 4. Increased MCV. 5. History of chronic obstructive pulmonary disease. 6. Hypertension. 7. History of rib tumor. 8. Remote history of nicotine dependence. 9. FULL CODE. RECOMMENDATIONS AND DISCUSSION: Recommend to continue current mediations and symptomatic treatment. Continue with antibiotics. Possible PICC line. Otherwise Dr. Ivory also considered surgery. Prognosis is extremely guarded because of multiple complex medical issues. Further recommendations to follow. MMODL / IJN: [id number] /
--- NOTE | 2019-11-09 09:28 | DS ---
DISCHARGE SUMMARY DATE OF SERVICE: 11/08/2019. FINAL DIAGNOSES: 1. Acute left great toe infection cellulitis with failure of outpatient treatment with possible osteomyelitis with MRSA. 2. Hallux valgus deformity. 3. Diabetes mellitus type 2. 4. Increased MCV. 5. History of chronic obstructive pulmonary disease. 6. Hypertension. 7. History of rib tumor. 8. Remote history of nicotine dependence. 9. FULL CODE. DISCHARGE DISPOSITION: The patient LEFT THE HOSPITAL AGAINST MEDICAL ADVICE. HISTORY OF PRESENT ILLNESS: This is a 59-year-old gentleman admitted with left great toe infection, possible osteomyelitis. Patient was treated with IV antibiotics. MRSA was grown presumptively but; however, the patient was not willing to stay and LEFT THE HOSPITAL AGAINST MEDICAL ADVICE. Please refer to the consultation and progress noted for further information. Patient was seen by Dr. Alonso and Dr. Ivory. Prognosis is extremely guarded throughout the hospital. MMODL / IJN: [id number] /
== END 2019-11-08 16:50 | disposition left against medical advice (07) ==
LOC: EC 10:56 → 4SSUR 12:57
PROVIDERS: ADMIT Hospitalist; ATTEND Hospitalist
DX: L03.032 Cellulitis of left toe (principal); L03.116 Cellulitis of left lower limb; Z11.59 Encounter for screening for other viral diseases; Z53.29 Procedure and treatment not carried out because of patient's decision for other reasons; E11.51 Type 2 diabetes mellitus with diabetic peripheral angiopathy without gangrene; E11.628 Type 2 diabetes mellitus with other skin complications; E11.622 Type 2 diabetes mellitus with other skin ulcer; E11.40 Type 2 diabetes mellitus with diabetic neuropathy, unspecified; E11.621 Type 2 diabetes mellitus with foot ulcer; M20.10 Hallux valgus (acquired), unspecified foot; J44.9 Chronic obstructive pulmonary disease, unspecified; I10 Essential (primary) hypertension; Z87.891 Personal history of nicotine dependence; I73.9 Peripheral vascular disease, unspecified; L97.529 Non-pressure chronic ulcer of other part of left foot with unspecified severity; Z88.2 Allergy status to sulfonamides; Z79.84 Long term (current) use of oral hypoglycemic drugs; Z83.3 Family history of diabetes mellitus; Z80.9 Family history of malignant neoplasm, unspecified
CPT/HCPCS: 96361 ×3; 96366 ×2; 96367 ×2; 96372; 96365; 99285; 36415; 80053; 80048; 85652 ×2; 83605; 85025 ×2; 86140 ×2; 81003; 87040; 87070; 87205; 87077; 87186; 73630; 78315; G0378 ×2; U0003; A9503; J2543; J3370 ×2; J1644; J0295 ×2

== ENCOUNTER 2021-07-25 15:19 | Inpatient (IN) | payer OTHER ==
[2021-07-25] MEDS ORDERED: ACETAMINOPHEN TAB 325 MG TAB PO STA (17:42)
[2021-07-25 18:12] LABS: Basophils # (A) 0.1 k/uL (0-0.2); Basophils % (A) 0 %; Eosinophils # (A) 0.1 k/uL (0-0.7); Eosinophils % (A) 1 %; HCT 46.7 % (39.0-53.0); HGB 15.7 gm/dL (13.0-17.5); Lymphocytes # (A) 2.4 k/uL (1.0-4.8); Lymphocytes % (A) 20 %; MCH 31.4 pg (25.0-35.0); MCHC 33.7 g/dL (31.0-37.0); MCV 93.2 fL (80.0-100.0); Mean Platelet Volume 8.9; Monocytes # (A) 0.6 k/uL (0-1.0); Monocytes % (A) 5 %; Neutrophils # (A) 8.6 k/uL (1.3-7.7); Neutrophils % (A) 72 %; Platelet Count 220 k/uL (150-450); RBC 5.01 m/uL (4.30-5.90); RDW 13.7 % (11.5-15.5)
[2021-07-25 18:17] LABS: Glucose,Whole Blood 104 mg/dL (75-99)
[2021-07-25 18:29] LABS: ALT 14 U/L (4-49); AST 16 U/L (17-59); African American GFR (CKD) >90 (>60 ml/min/1.73 sqM); Albumin 4.7 g/dL (3.5-5.0); Alkaline Phosphatase 88 U/L (38-126); Anion Gap 11 mmol/L; Blood Urea Nitrogen 14 mg/dL (9-20); C Reactive Protein 1.9 mg/dL (<1.0); Calcium 9.5 mg/dL (8.4-10.2); Carbon Dioxide 28 mmol/L (22-30); Chloride 102 mmol/L (98-107); Glucose 112 mg/dL (74-99); Magnesium 2.1 mg/dL (1.6-2.3); Non-African American GFR(CKD) >90 (>60 ml/min/1.73 sqM); Potassium 4.2 mmol/L (3.5-5.1); Sodium 141 mmol/L (137-145); Total Bilirubin 0.7 mg/dL (0.2-1.3); Total Protein 7.3 g/dL (6.3-8.2)
--- NOTE | 2021-07-25 18:59 | ED ---
General Adult HPI - General Chief complaint: Wound/Laceration Stated complaint: foot infection Time Seen by Provider: 07/25/21 17:25 Source: patient Mode of arrival: ambulatory Limitations: no limitations - History of Present Illness Initial comments: This 61-year-old male with a past medical history of COPD, hypertension, diabetes mellitus type 2 presents emergency Department with left great toe pain, swelling and erythema worsening over the last few days. States he did have an infection of the same toe about a year and half ago and had be admitted for antibiotics. Patient states over the last few days his toe has almost doubled in size and has became very red. Patient states he does have neuropathy due to his diabetes mellitus but states the pain in his great right toe is beginning to spread up his foot into his left ankle. Patient describes pain as throbbing and stinging. Patient states he does still have full range of motion of left foot, however when he puts weight on the foot it does cause pain to his great left toe. Patient denies any fevers or oozing from his great left toe. Patient denies any chest pain, shortness of breath, fever, abdominal pain, nausea, vomiting, change in bowel or bladder, change in appetite, change in vision, lightheadedness, dizziness, headache. Patient states he does take metformin and does take his glucose daily and states this morning it was 113. - Related Data Home Medications Medication Instructions Recorded Confirmed No Known Home Medications 07/25/21 07/25/21 Allergies Allergy/AdvReac Type Severity Reaction Status Date / Time Sulfa (Sulfonamide Allergy Anaphylaxis Verified 07/25/21 18:41 Antibiotics) Review of Systems ROS Statement: Those systems with pertinent positive or pertinent negative responses have been documented in the HPI. ROS Other: All systems not noted in ROS Statement are negative. 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",herniated disc History of Any Multi-Drug Resistant Organisms: None Reported Past Surgical History: Hernia Repair Past Psychological History: No Psychological Hx Reported Smoking Status: Former smoker Past Alcohol Use History: Occasional Past Drug Use History: None Reported - Past Family History Mother Family Medical History: Cancer Additional Family Medical History / Comment(s): small cell carcinoma Father Family Medical History: Diabetes Mellitus Sister(s) Family Medical History: Cancer General Exam Limitations: no limitations General appearance: alert, in no apparent distress Head exam: Present: atraumatic, normocephalic, normal inspection Eye exam: Present: normal appearance, PERRL, EOMI. Absent: scleral icterus, conjunctival injection, periorbital swelling ENT exam: Present: mucous membranes moist Neck exam: Present: normal inspection. Absent: tenderness, meningismus, full ROM Respiratory exam: Present: normal lung sounds bilaterally. Absent: respiratory distress, wheezes, rales, rhonchi, stridor Cardiovascular Exam: Present: regular rate, normal rhythm, normal heart sounds. Absent: systolic murmur, diastolic murmur, rubs, gallop, clicks GI/Abdominal exam: Present: soft, normal bowel sounds. Absent: distended, tenderness, guarding, rebound, rigid Extremities exam: Present: normal inspection (Patient with erythematous, swollen great left toe. Pain to palpation over anterior distal metatarsal.), normal capillary refill, other (DP pulses palpated bilateral lower extremities. Patient with neuropathy and bilateral feet on all 5 digits that he states has been that way for years. Patient with swollen, erythematous and warm great left toe. Pain with palpation to great left toe, first metatarsal on the anterior/medial left foot). Absent: full ROM (DP pulses palpable, full sensation of right leg up until metatarsals which patient states he has had neuropathy in for years. Patient did state there is pain when palpating his great left toe along with first metatarsal), pedal edema, calf tenderness Back exam: Present: full ROM. Absent: CVA tenderness (R), CVA tenderness (L), paraspinal tenderness, vertebral tenderness Neurological exam: Present: alert, oriented X3, CN II-XII intact Psychiatric exam: Present: normal affect, normal mood Skin exam: Present: warm, dry, intact, normal color. Absent: rash Course Vital Signs 07/25/21 15:24 Temperature 97.8 F Pulse Rate 65 Respiratory 18 Rate Blood Pressure 144/83 O2 Sat by Pulse 98 Oximetry Medical Decision Making - Medical Decision Making This 61-year-old male presents emergency department with left great toe pain, erythema, swelling and warmth worsening over the last 3 days. White blood cells of 12.0, CRP 1.9. X-ray left foot: Deformity of the first left distal phalanx with soft tissue swelling most consistent with some cola of chronic prostatitis. Soft tissue swelling around the proximal metatarsophalangeal joint of the fifth digit suspicious for cellulitis. Patient was placed on IV Vancomycin. Case discussed with Dr. Ovalles who agreed to admit patient to their services. He did suggest I consult infectious disease due to having chronic osteomyelitis. I did review case in detail with my attending, . Patient verbally agreed to be admitted to the hospital for further evaluation, workup and treatment. - Lab Data Result diagrams: 07/25/21 18:08 07/25/21 18:08 Lab Results 07/25/21 07/25/21 07/25/21 Range/Units 18:08 18:08 18:15 WBC 12.0 H (3.8-10.6) k/uL RBC 5.01 (4.30-5.90) m/uL Hgb 15.7 (13.0-17.5) gm/dL Hct 46.7 (39.0-53.0) % MCV 93.2 (80.0-100.0) fL MCH 31.4 (25.0-35.0) pg MCHC 33.7 (31.0-37.0) g/dL RDW 13.7 (11.5-15.5) % Plt Count 220 (150-450) k/uL MPV 8.9 Neutrophils % 72 % Lymphocytes % 20 % Monocytes % 5 % Eosinophils % 1 % Basophils % 0 % Neutrophils # 8.6 H (1.3-7.7) k/uL Lymphocytes # 2.4 (1.0-4.8) k/uL Monocytes # 0.6 (0-1.0) k/uL Eosinophils # 0.1 (0-0.7) k/uL Basophils # 0.1 (0-0.2) k/uL ESR Cancelled Sodium 141 (137-145) mmol/L Potassium 4.2 (3.5-5.1) mmol/L Chloride 102 (98-107) mmol/L Carbon Dioxide 28 (22-30) mmol/L Anion Gap 11 mmol/L BUN 14 (9-20) mg/dL Creatinine 0.69 (0.66-1.25) mg/dL Est GFR (CKD-EPI)AfAm >90 (>60 ml/min/1.73 sqM) Est GFR (CKD-EPI)NonAf >90 (>60 ml/min/1.73 sqM) Glucose 112 H (74-99) mg/dL POC Glucose (mg/dL) 104 H (75-99) mg/dL POC Glu [employer] ID Jose Arevalo Calcium 9.5 (8.4-10.2) mg/dL Magnesium 2.1 (1.6-2.3) mg/dL Total Bilirubin 0.7 (0.2-1.3) mg/dL AST 16 L (17-59) U/L ALT 14 (4-49) U/L Alkaline Phosphatase 88 (38-126) U/L C-Reactive Protein 1.9 H (<1.0) mg/dL Total Protein 7.3 (6.3-8.2) g/dL Albumin 4.7 (3.5-5.0) g/dL Disposition Clinical Impression: Cellulitis of great toe, left, Leukocytosis, Chronic osteomyelitis of toe of left foot Disposition: ADMITTED IP TO THIS [facility] Condition: Serious Referrals: None,Stated [Primary Care Provider] - 1-2 days
[2021-07-25] MEDS ORDERED: VANCOMYCIN IV PER PHARMACY 1 EACH MISC MISCELLANE PRN (20:29)
--- NOTE | 2021-07-25 20:30 | XR ---
EXAMINATION TYPE: XR foot complete LT DATE OF EXAM: 07/25/2021 7:43 PM INDICATION: Patient age:Male; 61 years old; Reason for study: attention to great toe; COMPARISON: Radiograph 11/07/2019 TECHNIQUE: The left foot was examined in the AP, oblique, and lateral projections. FINDINGS: The left great toe distal phalanx demonstrates irregular morphology erosive like changes. With soft t issue swelling. There remains soft tissue swelling around of the digit metatarsophalangeal joint. Rogelio caneal enthesophyte is present. No radiopaque foreign bodies identified. IMPRESSION: 1. Deformity of the left first digit distal phalanx with soft tissue swelling most consistent with s equela of chronic osteomyelitis. This has worsened from prior on 11/07/2019. 2. Soft tissue swelling around the proximal metatarsophalangeal joint of the fifth digit suspicious for cellulitis
[2021-07-25] MEDS ORDERED: VANCOMYCIN 1,500 MG in SODIUM CHLORIDE 0.9% 250 ML IVPB STA (20:39)
[2021-07-25] MEDS ORDERED: ACETAMINOPHEN TAB 325 MG TAB PO PRN (20:59)
[2021-07-25] MEDS ORDERED: NALOXONE 0.4 MG/ML 1 ML VIAL IV PRN (20:59)
[2021-07-25] MEDS ORDERED: ONDANSETRON 4 MG/2 ML VIAL IVP PRN (20:59)
[2021-07-25] MEDS: SODIUM CHLORIDE 0.9% 1,000 ML IV SCH ×2 (21:24→23:00)
--- NOTE | 2021-07-26 03:18 | P.HPIM ---
History of Present Illness H&P Date: 07/25/21 The patient is a 61-year-old male with a PMH of type II DM with peripheral neuropathy status post right second toe amputation, [facility] who was brought in due to left great toe swelling and redness. Patient reports that his symptoms started 2 days ago and have gradually progressed. Of note, the patient previously had an infection of the same toe in 11/2019 at which time he was admitted and received a course of antibiotics. The patient denied any pain of the toe. Also denied any additional complaints. Denies extremity fever, chills, chest discomfort, s hortness of breath, nausea, vomiting, abdominal pain, diarrhea. Left foot x-ray revealed findings consistent with chronic ophthalmitis of the left first toe. Laboratory evaluation was remarkable for leukocytosis of 12.0, with CRP 1.9. Review of systems: Pertinent positives and negatives as discussed in HPI, a complete review of systems was performed and all other systems are negative. Physical examination: General: non toxic, no distress, appears at stated age, normal weight Derm: Left first toe significant swelling, warmth, and erythema extending to the MTP joint, warm, dry Head: atraumatic, normocephalic, symmetric Eyes: EOMI, no lid lag, anicteric sclera, pupils equal round reactive to light ENT: Nose and ears atraumatic, no thrush, no pharyngeal erythema Neck: No thyromegaly, no cervical lymphadenopathy, trachea midline, supple Mouth: no lip lesion, mucus membranes moist Cardiovascular: S1S2 reg, no murmur, positive posterior tibial pulse bilateral, no edema, capillary refill less than 2 seconds Lungs: CTA bilateral, no rhonchi, no rales , no accessory muscle use Abdominal: soft, nontender to palpation, no guarding, no appreciable organomegaly, normal bowel sounds Ext: no gross muscle atrophy, muscle strength 5 out of 5 in all 4 extremities grossly, no contractures, Neuro: CN II-XI grossly intact, light touch intact all 4 extremities, finger to nose within normal limits, Psych: Alert, oriented, appropriate affect Assessment/plan Left toe cellulitis with underlying osteomyelitis in type II diabetic with peripheral neuropathy -Vascular surgery consult -Continue with antibiotics -Follow up blood cultures Chronic conditions: Type II DM -Patient does not take any medications at home -Check A1c -Insulin sliding scale and blood glucose monitoring DVT prophylaxis -Heparin subcu The patient is admitted with an anticipated greater than 2 midnight stay for e valuation of L toe osteo CODE STATUS: Full Code Discussed with: Patient Anticipated discharge date: 07/[address]: Home 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",herniated disc History of Any Multi-Drug Resistant Organisms: None Reported Past Surgical History: Hernia Repair Past Psychological History: No Psychological Hx Reported Smoking Status: Former smoker Past Alcohol Use History: Occasional Past Drug Use History: None Reported - Past Family History Mother Family Medical History: Cancer Additional Family Medical History / Comment(s): small cell carcinoma Father Family Medical History: Diabetes Mellitus Sister(s) Family Medical History: Cancer Medications and Allergies Home Medications Medication Instructions Recorded Confirmed Type No Known Home Medications 07/25/21 07/25/21 History Allergies Allergy/AdvReac Type Severity Reaction Status Date / Time Sulfa (Sulfonamide Allergy Anaphylaxis Verified 07/25/21 18:41 Antibiotics) Physical Exam Vitals: Vital Signs Temp Pulse Resp BP Pulse Ox 07/25/21 15:24 97.8 F 65 18 144/83 98 Intake and Output 07/25/21 07/25/21 07/25/21 06:59 14:59 22:59 Other: Weight 97.522 kg Results CBC & Chem 7: 07/25/21 18:08 07/25/21 18:08 Labs: Abnormal Lab Results - Last 24 Hours (Table) 07/25/21 07/25/21 07/25/21 Range/Units 18:08 18:08 18:15 WBC 12.0 H (3.8-10.6) k/uL Neutrophils # 8.6 H (1.3-7.7) k/uL Glucose 112 H (74-99) mg/dL POC Glucose (mg/dL) 104 H (75-99) mg/dL AST 16 L (17-59) U/L C-Reactive Protein 1.9 H (<1.0) mg/dL
[2021-07-26] MEDS: VANCOMYCIN 1,500 MG in SODIUM CHLORIDE 0.9% 250 ML IVPB SCH ×3 (05:46→22:00)
[2021-07-26 06:55] LABS: African American GFR (CKD) >90 (>60 ml/min/1.73 sqM); Anion Gap 6 mmol/L; Blood Urea Nitrogen 12 mg/dL (9-20); Carbon Dioxide 28 mmol/L (22-30); Chloride 106 mmol/L (98-107); Glucose 106 mg/dL (74-99); Non-African American GFR(CKD) >90 (>60 ml/min/1.73 sqM); Potassium 4.3 mmol/L (3.5-5.1); Sodium 140 mmol/L (137-145)
[2021-07-26 07:29] LABS: Glucose,Whole Blood 83 mg/dL (75-99)
[2021-07-26] MEDS: INSULIN ASPART (NovoLOG) 100 UNIT/ML VIAL SQ SCH ×4 (07:47→20:54)
[2021-07-26] MEDS: HEPARIN SODIUM,PORCINE/PF 5,000 UNIT/0.5 ML SYRINGE SQ SCH ×3 (07:59→23:26)
[2021-07-26] MEDS ORDERED: PIPERACILLIN-TAZOBACTAM 3.375 GM in SODIUM CHLORIDE 0.9% 100 ML IVPB SCH (08:00)
[2021-07-26 09:33] LABS: HCT 41.9 % (39.6-50.0); HGB 13.6 g/dL (13.0-17.0); MCHC 32.5 g/dL (32.0-37.0); MCV 92.3 fL (80.0-97.0); Mean Platelet Volume 11.8 fL (9.5-12.2); NRBC Per 100 WBC 0 /100 WBCS (0.0-0.0); Platelet Count 194 X 10*3/uL (140-440); RBC 4.54 X 10*6/uL (4.40-5.60); RDW 13.2 % (11.5-14.5); WBC 9.48 X 10*3/uL (4.50-10.00)
--- NOTE | 2021-07-26 11:09 | P.GSCN ---
History of Present Illness Consult date: 07/26/21 Reason for Consult: Left great toe osteomyelitis Requesting physician: Iliana Celaya History of present illness: This is a 61-year-old male with a past medical history of diabetes mellitus with peripheral neuropathy, COPD, hypertension and osteomyelitis of the left great toe diagnosed in 2019. The patient is currently in [facility] and presented to the emergency department for left great toe swelling and redness. States it began approximately 2 days ago. He states he has no feeling in his foot so he does not know if it hurts. States he had similar episode back in 2019 he was diagnosed with osteomyelitis and treated with IV antibiotics. Patient does have a wound at the tip of the toe that he states has been there approximately 3 weeks. Denies any drainage. Denies any fevers or chills. He also has a history of right second toe amputation which she states was for osteomyelitis approximately 2-3 years ago done at [facility].he denies any fever, chills, abdominal pain, nausea or vomiting. Denies any shortness of breath or chest pain. He has been able febrile. X-ray shows deformity of the left first digit distal phalanx with soft tissue swelling most consistent with sequela of chronic osteomyelitis worsened from prior on 11/07/2019. Soft tissue swelling around the proximal metatarsophalangeal joint of the fifth digit suspicious for cellulitis. 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",herniated disc History of Any Multi-Drug Resistant Organisms: None Reported Past Surgical History: Hernia Repair Past Psychological History: No Psychological Hx Reported Smoking Status: Former smoker Past Alcohol Use History: Occasional Past Drug Use History: None Reported - Past Family History Mother Family Medical History: Cancer Additional Family Medical History / Comment(s): small cell carcinoma Father Family Medical History: Diabetes Mellitus Sister(s) Family Medical History: Cancer Medications and Allergies Home Medications Medication Instructions Recorded Confirmed Type No Known Home Medications 07/25/21 07/25/21 History Allergies Allergy/AdvReac Type Severity Reaction Status Date / Time Sulfa (Sulfonamide Allergy Anaphylaxis Verified 07/25/21 18:41 Antibiotics) Surgical - Exam Vital Signs Temp Pulse Resp BP Pulse Ox 97.8 F 65 18 144/83 98 07/25/21 15:24 07/25/21 15:24 07/25/21 15:24 07/25/21 15:24 07/25/21 15:24 General appearance: The patient is alert, oriented, appears in no acute distress. HET: Head is normocephalic and atraumatic. Pupils are equal and reactive. Neck: Supple without lymphadenopathy. Trachea midline. No audible carotid bruit. Heart: S1 S2. Regular rate and rhythm. Lungs: Clear to auscultation bilaterally. Abdomen: Soft, nontender, nondistended. Extremities: Left foot great toe swollen, red, swelling to the dorsal aspect of the left foot with redness. There is a ulcer to the distal tip of the great toe without any drainage. Bilateral palpable +2 pedal and posterior tibialis pulse. No pain with palpation. Right lower extremity without any edema, previous right second toe amputation site well healed. Neurological: No focal deficits. Decreased sensation to bilateral feet. Results - Labs 07/26/21 06:06 07/27/21 06:11 Abnormal Lab Results - Last 24 Hours (Table) 07/25/21 07/25/21 07/25/21 Range/Units 18:08 18:08 18:15 WBC 12.0 H (3.8-10.6) k/uL Neutrophils # 8.6 H (1.3-7.7) k/uL Glucose 112 H (74-99) mg/dL POC Glucose (mg/dL) 104 H (75-99) mg/dL AST 16 L (17-59) U/L C-Reactive Protein 1.9 H (<1.0) mg/dL 07/26/21 Range/Units 06:06 WBC (3.8-10.6) k/uL Neutrophils # (1.3-7.7) k/uL Glucose 106 H (74-99) mg/dL POC Glucose (mg/dL) (75-99) mg/dL AST (17-59) U/L C-Reactive Protein (<1.0) mg/dL Diabetes panel 07/25/21 07/26/21 Range/Units 18:08 06:06 Sodium 141 140 (137-145) mmol/L Potassium 4.2 4.3 (3.5-5.1) mmol/L Chloride 102 106 (98-107) mmol/L Carbon Dioxide 28 28 (22-30) mmol/L BUN 14 12 (9-20) mg/dL Creatinine 0.69 0.72 (0.66-1.25) mg/dL Glucose 112 H 106 H (74-99) mg/dL Calcium 9.5 9.0 (8.4-10.2) mg/dL AST 16 L (17-59) U/L ALT 14 (4-49) U/L Alkaline Phosphatase 88 (38-126) U/L Total Protein 7.3 (6.3-8.2) g/dL Albumin 4.7 (3.5-5.0) g/dL Calcium panel 07/25/21 07/26/21 Range/Units 18:08 06:06 Calcium 9.5 9.0 (8.4-10.2) mg/dL Albumin 4.7 (3.5-5.0) g/dL Pituitary panel 07/25/21 07/26/21 Range/Units 18:08 06:06 Sodium 141 140 (137-145) mmol/L Potassium 4.2 4.3 (3.5-5.1) mmol/L Chloride 102 106 (98-107) mmol/L Carbon Dioxide 28 28 (22-30) mmol/L BUN 14 12 (9-20) mg/dL Creatinine 0.69 0.72 (0.66-1.25) mg/dL Glucose 112 H 106 H (74-99) mg/dL Calcium 9.5 9.0 (8.4-10.2) mg/dL Adrenal panel 07/25/21 07/26/21 Range/Units 18:08 06:06 Sodium 141 140 (137-145) mmol/L Potassium 4.2 4.3 (3.5-5.1) mmol/L Chloride 102 106 (98-107) mmol/L Carbon Dioxide 28 28 (22-30) mmol/L BUN 14 12 (9-20) mg/dL Creatinine 0.69 0.72 (0.66-1.25) mg/dL Glucose 112 H 106 H (74-99) mg/dL Calcium 9.5 9.0 (8.4-10.2) mg/dL Total Bilirubin 0.7 (0.2-1.3) mg/dL AST 16 L (17-59) U/L ALT 14 (4-49) U/L Alkaline Phosphatase 88 (38-126) U/L Total Protein 7.3 (6.3-8.2) g/dL Albumin 4.7 (3.5-5.0) g/dL - Imaging Comments: X-ray shows deformity of the left first digit distal phalanx with soft tissue swelling most consistent with sequela of chronic osteomyelitis worsened from prior on 11/07/2019. Soft tissue swelling around the proximal metatarsophalangeal joint of the fifth digit suspicious for cellulitis. Assessment and Plan Assessment: 1. Left great toe osteomyelitis, likely chronic 2. Left foot/great toe cellulitis 3. Type 2 diabetes mellitus 4. Peripheral neuropathy Plan: 1. Regular diet, may have breakfast then nothing further by mouth 2. Continue IV antibiotics per medicine 3. We'll tentatively schedule for possible debridement, left great toe amputation this afternoon or possibly tomorrow Further recommendations forthcoming per vascular surgeon Thank you for this consultation. The impression and plan of care has been dictated as directed. Dr. Nicole I performed a history and examination of this patient, discussed the same with the dictator. I agree with the dictator's note ,documented as a scribe. Any additional findings or plans will be noted.
[2021-07-26 12:01] LABS: Glucose,Whole Blood 110 mg/dL (75-99)
--- NOTE | 2021-07-26 16:18 | P.PN ---
Subjective Progress Note Date: 07/26/21 Hospital course: The patient is a 61-year-old male with a PMH of type II DM with peripheral neuropathy status post right second toe amputation, currently incarcerated at [facility] who was brought in by [facility] officer due to left great toe swelling and redness. Patient reports that his symptoms started 2 days ago and have gradually progressed. Of note, the patient previously had an infection of the same toe in 11/2019 at which time he was admitted and received a course of antibiotics. The patient denied any pain of the toe and denied having any injuries or open wounds prior to development of pain and swelling. Left foot x- ray revealed findings consistent with chronic osteomyelitis of the left first toe. Laboratory evaluation was remarkable for leukocytosis of 12.0, with CRP 1.9. Patient was admitted under our services with consultation to infectious disease and vascular surgery. Physical examination: Patient seen and fully evaluated at bedside this morning. [facility] officer remains at bedside. Patient reports currently he has no complaints denying any pain or discomfort and left great toe. Left great toe is significantly swollen with moderate erythema. No drainage noted at this time. Patient has remained afebrile since admission. Morning labs revealed resolution of leukocytosis and otherwise no significant abnormalities. Patient was seen and evaluated by vascular surgery whom reported tentative plan is for possible debridement and left great toe amputation later this afternoon. General: non toxic, no distress, appears at stated age, normal weight Derm: Left first toe significant swelling, warmth, and erythema extending to the MTP joint, warm, dry Head: atraumatic, normocephalic, symmetric Eyes: no lid lag, anicteric sclera, pupils equal round Neck: No cervical lymphadenopathy, trachea midline, supple with full range of motion Mouth: no lip lesion, mucus membranes moist Cardiovascular: S1S2 reg, no murmur, positive posterior tibial pulses bilateral, no edema, capillary refill less than 2 seconds Lungs: CTA bilateral, no rhonchi, no rales , no accessory muscle use Abdominal: soft, nontender to palpation, no guarding, no appreciable organomegaly, normal bowel sounds Ext: no gross muscle atrophy, muscle strength 5 out of 5 in all 4 extremities grossly, no contractures, Neuro: CN II-XI grossly intact, sensation and movement intact, GCS 15. Psych: Alert, oriented, appropriate affect Assessment and plan of care: Left toe cellulitis with underlying osteomyelitis in type II diabetic with peripheral neuropathy -Vascular surgery following, tentative plan is for possible debridement and left great toe amputation later this afternoon -Continue with antibiotics: Vancomycin -Follow up blood cultures -Infectious disease following, appreciate further recommendations. Type II [id number] diabetes mellitus -Patient does not take any medications, diet controlled -Hemoglobin A1c 6.6% -At this time we will continue with glycemic protocol and NovoLog sliding scale DVT prophylaxis: Heparin CODE STATUS: Full Code Discussed with: Patient Anticipated discharge date: Clinical course to determine Anticipated discharge place: Release in custody of [facility] as patient is currently incarcerated at [facility] Objective - Vital Signs Vital signs: Vital Signs Temp 97 F L 07/26/21 07:00 Pulse 69 07/26/21 07:00 Resp 18 07/26/21 07:00 BP 159/87 07/26/21 07:00 Pulse Ox 98 07/26/21 07:00 Intake & Output 07/25/21 07/26/21 07/26/21 18:59 06:59 18:59 Intake Total 240 Balance 240 Weight 97.522 kg 97.522 kg Intake: Oral 240 Other: # Voids 2 - Labs CBC & Chem 7: 07/26/21 06:06 07/26/21 06:06 Labs: Abnormal Lab Results - Last 24 Hours (Table) 07/25/21 07/25/21 07/25/21 Range/Units 18:08 18:08 18:15 WBC 12.0 H (3.8-10.6) k/uL Neutrophils # 8.6 H (1.3-7.7) k/uL Glucose 112 H (74-99) mg/dL POC Glucose (mg/dL) 104 H (75-99) mg/dL Hemoglobin A1c (0.0-6.0) % AST 16 L (17-59) U/L C-Reactive Protein 1.9 H (<1.0) mg/dL 07/26/21 07/26/21 Range/Units 06:06 06:06 WBC (3.8-10.6) k/uL Neutrophils # (1.3-7.7) k/uL Glucose 106 H (74-99) mg/dL POC Glucose (mg/dL) (75-99) mg/dL Hemoglobin A1c 6.6 H (0.0-6.0) % AST (17-59) U/L C-Reactive Protein (<1.0) mg/dL
[2021-07-26 17:10] LABS: Glucose,Whole Blood 115 mg/dL (75-99)
[2021-07-26 20:33] LABS: Glucose,Whole Blood 122 mg/dL (75-99)
--- NOTE | 2021-07-26 23:00 | P.CONS ---
History of Present Illness - Reason for Consult Consult date: 07/26/21 Left big toe diabetic foot infection Requesting physician: Rogelio Arorae - Chief Complaint Left big toe swelling and redness few days - History of Present Illness Patient is a 61-year male with a past medical history significant for diabetes mellitus, COPD hypertension and the patient did have a left big toe diabetic foot infection concerning for osteomyelitis in 2019 however the patient left AGAINST MEDICAL ADVICE and is admitted for any cultures patient subs equently was lost to follow-up patient is currently incarcerated at [facility] and the patient noticed to having increasing swelling and redness to the left big toe that has been getting worse for the last few days patient denies having any history of any trauma patient do have underlying diabetic neuropathy denies significant pain into his left big toe area which is swollen and red denies any foul-smelling drainage patient denies having any fever or any chills on presentation to the hospital the patient was afebrile patient did have elevated white count of 12,000 with a left shift creatinine was normal CRP 1.9 patient did have x-ray of the foot which shows deformity of the left first digit distal phalanx with soft tissue swelling which has gotten worse from prior x-ray of 11/07/2019, patient was started on vancomycin and Zosyn has been admitted to the hospital infectious disease was consulted for further management of antibiotic therapy Review of Systems Positive point has been mentioned in the HPI rest of the systems are negative 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",herniated disc History of Any Multi-Drug Resistant Organisms: None Reported Past Surgical History: Hernia Repair Past Psychological History: No Psychological Hx Reported Smoking Status: Former smoker Past Alcohol Use History: Occasional Past Drug Use History: None Reported - Past Family History Mother Family Medical History: Cancer Additional Family Medical History / Comment(s): small cell carcinoma Father Family Medical History: Diabetes Mellitus Sister(s) Family Medical History: Cancer Medications and Allergies Home Medications Medication Instructions Recorded Confirmed Type No Known Home Medications 07/25/21 07/25/21 History Allergies Allergy/AdvReac Type Severity Reaction Status Date / Time Sulfa (Sulfonamide Allergy Anaphylaxis Verified 07/25/21 18:41 Antibiotics) Physical Exam Vitals: Vital Signs Temp Pulse Pulse Resp BP BP Pulse Ox 07/26/21 07:00 97 F L 69 18 159/87 98 07/26/21 02:25 98.2 F 77 16 149/90 99 07/26/21 01:59 98.5 F 73 16 136/93 97 07/25/21 23:06 97.7 F 68 18 119/69 98 07/25/21 15:24 97.8 F 65 18 144/83 98 Intake and Output 07/25/21 07/26/21 07/26/21 22:59 06:59 14:59 Intake Total 240 Balance 240 Intake: Oral 240 Other: # Voids 2 Weight 97.522 kg 97.522 kg GENERAL DESCRIPTION: Middle-aged male lying in bed, no distress. No tachypnea or accessory muscle of respiration use. HEENT: Shows Pallor , no scleral icterus. Oral mucous membrane is dry. No pharyngeal erythema or thrush NECK: Trachea central, no thyromegaly. LUNGS: Unlabored breathing. Clear to auscultation anteriorly. No wheeze or crackle. HEART: S1, S2, regular rate and rhythm. No loud murmur ABDOMEN: Soft, no tenderness , guarding or rigidity, no organomegaly EXTREMITIES: No edema of feet. Left big toe was swollen and red some superficial wound SKIN: No rash, no masses palpable. NEUROLOGICAL: The patient is awake, alert, oriented x3, mood and affect normal. Results CBC & Chem 7: 07/26/21 06:06 07/26/21 06:06 Labs: Abnormal Lab Results - Last 24 Hours (Table) 07/25/21 07/25/21 07/25/21 Range/Units 18:08 18:08 18:15 WBC 12.0 H (3.8-10.6) k/uL Neutrophils # 8.6 H (1.3-7.7) k/uL Glucose 112 H (74-99) mg/dL POC Glucose (mg/dL) 104 H (75-99) mg/dL Hemoglobin A1c (0.0-6.0) % AST 16 L (17-59) U/L C-Reactive Protein 1.9 H (<1.0) mg/dL 07/26/21 07/26/21 Range/Units 06:06 06:06 WBC (3.8-10.6) k/uL Neutrophils # (1.3-7.7) k/uL Glucose 106 H (74-99) mg/dL POC Glucose (mg/dL) (75-99) mg/dL Hemoglobin A1c 6.6 H (0.0-6.0) % AST (17-59) U/L C-Reactive Protein (<1.0) mg/dL Assessment and Plan (1) Diabetic infection of left foot Current Visit: No Status: Acute Code(s): E11.628 - TYPE 2 DIABETES MELLITUS WITH OTHER SKIN COMPLICATIONS; L08.9 - LOCAL INFECTION OF THE SKIN AND SUBCUTANEOUS TISSUE, UNSP SNOMED Code(s): 40373097 Plan: 1patient presented to hospital left big toe swelling and redness with abnormal x-ray suspicious for osteomyelitis in this patient was admitted to this facility in November 2019 at that point he did have osteomyelitis however the patient left AGAINST MEDICAL ADVICE and was subsequently lost to follow-up culture that was positive for MSSA in this patient currently incarcerated and will need to cover for resistant gram-positive such as MRSA 2-local culture has been requested 3-await possible surgical debridement versus amputation at which time deep culture should be obtained 4-vancomycin pharmacy to dose target trough of 15 while watching kidney function and vancomycin trough closely however discontinue Zosyn to decrease risk of nephrotoxicity. We will follow on clinical condition and cultures to further adjust medication if needed Thank you for this consultation will follow this patient along with you Time with Patient: Greater than 30
[2021-07-27] MEDS: SODIUM CHLORIDE 0.9% 1,000 ML IV SCH ×2 (02:08→15:56)
[2021-07-27] MEDS ORDERED: VANCOMYCIN TROUGH DUE 1 EACH MISC MISCELLANE ONE (05:00)
[2021-07-27 07:23] LABS: African American GFR (CKD) >90 (>60 ml/min/1.73 sqM); Non-African American GFR(CKD) >90 (>60 ml/min/1.73 sqM)
[2021-07-27] MEDS: VANCOMYCIN 1,500 MG in SODIUM CHLORIDE 0.9% 250 ML IVPB SCH (07:28)
[2021-07-27 07:33] LABS: Glucose,Whole Blood 103 mg/dL (75-99)
[2021-07-27] MEDS: HEPARIN SODIUM,PORCINE/PF 5,000 UNIT/0.5 ML SYRINGE SQ SCH ×3 (07:36→23:51)
[2021-07-27] MEDS: INSULIN ASPART (NovoLOG) 100 UNIT/ML VIAL SQ SCH ×4 (07:37→20:38)
--- NOTE | 2021-07-27 10:07 | P.PN ---
Subjective Progress Note Date: 07/27/21 Hospital course: The patient is a 61-year-old male with a PMH of type II DM with peripheral neuropathy status post right second toe amputation, currently incarcerated at [facility] who was brought in by [facility] officer due to left great toe swelling and redness. Patient reports that his symptoms started 2 days ago and have gradually progressed. Of note, the patient previously had an infection of the same toe in 11/2019 at which time he was admitted and received a course of antibiotics. The patient denied any pain of the toe and denied having any injuries or open wounds prior to development of pain and swelling. Left foot x- ray revealed findings consistent with chronic osteomyelitis of the left first toe. Laboratory evaluation was remarkable for leukocytosis of 12.0, with CRP 1.9. Patient was admitted under our services with consultation to infectious disease and vascular surgery. Physical examination: Patient seen and fully evaluated at bedside this morning. [facility] officer remains at bedside. Patient reports currently he has no complaints denying any pain or discomfort and left great toe. Left great toe remains significantly swollen with moderate erythema. No drainage noted at this time. He continues to remain afebrile and remains on IV antibiotic vancomycin pending blood cultures. Plan is for patient to go down to OR with vascular surgery for debridement and possible left great toe amputation later this afternoon at 1 PM. General: non toxic, no distress, appears at stated age, normal weight Derm: Left first toe significant swelling, warmth, and erythema extending to the MTP joint, warm, dry Head: atraumatic, normocephalic, symmetric Eyes: no lid lag, anicteric sclera, pupils equal round Neck: No cervical lymphadenopathy, trachea midline, supple with full range of motion Mouth: no lip lesion, mucus membranes moist Cardiovascular: S1S2 reg, no murmur, positive posterior tibial pulses bilateral, no edema, capillary refill less than 2 seconds Lungs: CTA bilateral, no rhonchi, no rales , no accessory muscle use Abdominal: soft, nontender to palpation, no guarding, no appreciable organomegaly, normal bowel sounds Ext: no gross muscle atrophy, muscle strength 5 out of 5 in all 4 extremities grossly, no contractures, Neuro: CN II-XI grossly intact, sensation and movement intact, GCS 15. Psych: Alert, oriented, appropriate affect Assessment and plan of care: Left toe cellulitis with underlying osteomyelitis in type II diabetic with peripheral neuropathy -Vascular surgery following, tentative plan is for debridement with possible left great toe amputation later this afternoon at 1 PM -Continue with antibiotics: Vancomycin -Follow up blood cultures -Infectious disease following, appreciate further recommendations. Type II [id number] diabetes mellitus -Patient does not take any medications, diet controlled -Hemoglobin A1c 6.6% -At this time we will continue with glycemic protocol and NovoLog sliding scale DVT prophylaxis: Heparin CODE STATUS: Full Code Discussed with: Patient Anticipated discharge date: Clinical course to determine Anticipated discharge place: Release in custody of [facility] as patient is currently incarcerated at [facility] Objective - Vital Signs Vital signs: Vital Signs Temp 97.6 F 07/27/21 08:00 Pulse 65 07/27/21 08:00 Resp 18 07/27/21 08:00 BP 150/77 07/27/21 08:00 Pulse Ox 99 07/27/21 08:00 Intake & Output 07/26/21 07/27/21 07/27/21 18:59 06:59 18:59 Intake Total 720 500 Balance 720 500 Intake: Oral 720 500 Other: Voiding Method Toilet Toilet # Voids 2 2 - Labs CBC & Chem 7: 07/26/21 06:06 07/27/21 06:11 Labs: Abnormal Lab Results - Last 24 Hours (Table) 07/26/21 07/26/21 07/26/21 Range/Units 11:56 17:07 20:32 POC Glucose (mg/dL) 110 H 115 H 122 H (75-99) mg/dL 07/27/21 Range/Units 07:15 POC Glucose (mg/dL) 103 H (75-99) mg/dL Microbiology - Last 24 Hours (Table) 07/25/21 18:00 Blood Culture - Preliminary Blood No Growth after 24 hours 07/25/21 18:21 Blood Culture - Preliminary Blood No Growth after 24 hours
[2021-07-27 11:54] LABS: Glucose,Whole Blood 106 mg/dL (75-99)
[2021-07-27] MEDS: VANCOMYCIN 1,750 MG in SODIUM CHLORIDE 0.9% 500 ML 500 ML IVPB SCH ×2 (15:51→23:51)
[2021-07-27 17:00] LABS: Glucose,Whole Blood 78 mg/dL (75-99)
[2021-07-27] MEDS ORDERED: fentaNYL (PF) 50 MCG/ML 2 ML AMP ONE (18:10)
[2021-07-27] MEDS ORDERED: LIDOCAINE 1% INJ 10MG/ML (20 ML MDV) ONE (18:10)
[2021-07-27] MEDS ORDERED: MIDAZOLAM 2 MG/2 ML VIAL ONE (18:10)
[2021-07-27] MEDS ORDERED: PROPOFOL 10 MG/ML 20 ML VIAL IV ONE (18:10)
[2021-07-27] MEDS ORDERED: IV FLUID CONTINUATION 1,000 ML IV ONE (18:23)
[2021-07-27 19:13] LABS: Glucose,Whole Blood 95 mg/dL (75-99)
--- NOTE | 2021-07-27 19:28 | P.OP ---
Date of Procedure: 07/27/21 Description of Procedure: DATE OF SERVICE: 07/27/2021 SURGEON: Tania Nicole DO PLAYBACK OPERATOR: None PREOPERATIVE DIAGNOSIS: [Chronic osteomyelitis with secondary cellulitis left great toe]. POSTOPERATIVE DIAGNOSIS: [Same]. OPERATION: Left great toe amputation ANESTHESIA: Gen. LMA ESTIMATED BLOOD LOSS: 25 mL SPECIMENS REMOVED: Left great toe COMPLICATIONS: None immediately apparent Clinical note: Patient is 61-year-old male who back in 2019 had evidence of osteomyelitis and has not had much change since then as far as his medical health or ability to take medications. He presented to the hospital with inflammation and erythema of the great toe and was found to again have continued osteomyelitis secondary infectious characteristics. At this time it was recommended he undergo a great toe amputation. Risks and benefits were discussed. He seemingly understands and is willing to proceed as such DESCRIPTION OF PROCEDURE: The patient was brought to the operating room under general LMA and a circular incision was made at the base of the proximal phalanx, deepened through the skin, fat, and tendons. Tendons were divided prior to plantar and dorsal aspect of the great toe. After that, proximal phalanx was dislocated from the metatarsal joint. The sesamoid bones were also removed. The area was then copiously irrigated Hemostasis was well controlled and incision was approximated with 3-0 Vicryl and nylon interrupted suture. Dressing applied. The patient tolerated the procedure well.
[2021-07-27 20:28] LABS: Glucose,Whole Blood 136 mg/dL (75-99)
[2021-07-27] MEDS: MORPHINE SULFATE 2 MG/ML SYRINGE IV PRN (21:02)
--- NOTE | 2021-07-27 23:01 | P.PN ---
Subjective Progress Note Date: 07/27/21 Principal diagnosis: Left big toe osteomyelitis Patient is a 61-year-old male with a past medical history significant for diabetes mellitus patient did have a history of left big toe Osteomyelitis that has been going on for more than a year presented to the hospital with acute worsening with swelling and redness. On today's evaluation that is 07/27/2021, the patient denies having any fever or any chills, the patient is breathing comfortably, the patient denies having any chest pain or shortness of breath or cough no abdominal pain or any worsening pain to the left big toe Objective - Vital Signs Vital signs: Vital Signs Temp 97.6 F 07/27/21 08:00 Pulse 65 07/27/21 08:00 Resp 18 07/27/21 08:00 BP 150/77 07/27/21 08:00 Pulse Ox 99 07/27/21 08:00 Intake & Output 07/26/21 07/27/21 07/27/21 18:59 06:59 18:59 Intake Total 720 500 Balance 720 500 Intake: Oral 720 500 Other: Voiding Method Toilet Toilet # Voids 2 2 - Exam GENERAL DESCRIPTION: A middle-aged male lying in bed in no distress RESPIRATORY SYSTEM: Unlabored breathing , decreased breath sounds at bases HEART: S1 S2 regular rate and rhythm , ABDOMEN: Soft , no tenderness EXTREMITIES: No edema feet, left big toe with swelling and redness no drainage - Labs CBC & Chem 7: 07/26/21 06:06 07/27/21 06:11 Labs: Abnormal Lab Results - Last 24 Hours (Table) 07/26/21 07/26/21 07/26/21 Range/Units 11:56 17:07 20:32 POC Glucose (mg/dL) 110 H 115 H 122 H (75-99) mg/dL 07/27/21 Range/Units 07:15 POC Glucose (mg/dL) 103 H (75-99) mg/dL Microbiology - Last 24 Hours (Table) 07/25/21 18:00 Blood Culture - Preliminary Blood No Growth after 24 hours 07/25/21 18:21 Blood Culture - Preliminary Blood No Growth after 24 hours Assessment and Plan (1) Diabetic infection of left foot Current Visit: No Status: Acute Code(s): E11.628 - TYPE 2 DIABETES MELLITUS WITH OTHER SKIN COMPLICATIONS; L08.9 - LOCAL INFECTION OF THE SKIN AND SUBCUTANEOUS TISSUE, UNSP SNOMED Code(s): 97584314 Plan: 1patient presented to hospital left big toe swelling and redness with abnormal x-ray suspicious for osteomyelitis in this patient was admitted to this facility in November 2019 at that point he did have osteomyelitis however the patient left AGAINST MEDICAL ADVICE and was subsequently lost to follow-up culture that was positive for MSSA in this patient currently incarcerated and will need to cover for resistant gram-positive such as MRSA 2-local culture has been requested but not obtained 3-await possible surgical debridement versus amputation later this afternoon at which time deep culture should be obtained 4-vancomycin pharmacy to dose target trough of 15 while watching kidney function and vancomycin trough closely Time with Patient: Less than 30
[2021-07-28] MEDS: MORPHINE SULFATE 2 MG/ML SYRINGE IV PRN ×4 (04:27→20:18)
[2021-07-28] MEDS: SODIUM CHLORIDE 0.9% 1,000 ML IV SCH ×2 (05:36→17:06)
[2021-07-28 07:31] LABS: Glucose,Whole Blood 88 mg/dL (75-99)
[2021-07-28] MEDS: INSULIN ASPART (NovoLOG) 100 UNIT/ML VIAL SQ SCH ×4 (07:39→20:01)
[2021-07-28] MEDS: HEPARIN SODIUM,PORCINE/PF 5,000 UNIT/0.5 ML SYRINGE SQ SCH ×3 (07:50→20:21)
[2021-07-28] MEDS: VANCOMYCIN 1,750 MG in SODIUM CHLORIDE 0.9% 500 ML 500 ML IVPB SCH ×2 (07:50→17:02)
[2021-07-28 10:46] LABS: HCT 42.4 % (39.6-50.0); HGB 13.6 g/dL (13.0-17.0); MCH 29.8 pg (27.0-32.0); MCHC 32.1 g/dL (32.0-37.0); Mean Platelet Volume 11.9 fL (9.5-12.2); NRBC Per 100 WBC 0 /100 WBCS (0.0-0.0); Platelet Count 195 X 10*3/uL (140-440); RBC 4.56 X 10*6/uL (4.40-5.60); RDW 13.2 % (11.5-14.5); WBC 8.01 X 10*3/uL (4.50-10.00)
[2021-07-28 10:57] LABS: Albumin 4.2 g/dL (3.8-4.9); Albumin/Globulin Ratio 2.63 (1.60-3.17); Anion Gap 11.8 mmol/L (10.00-18.00); BUN/Creat Ratio 17.63 Ratio (12.00-20.00); Blood Urea Nitrogen 14.1 mg/dL (9.0-27.0); Calcium 9.5 mg/dL (8.7-10.3); Carbon Dioxide 26.2 mmol/L (20.0-27.5); Globulin 1.6 g/dL (1.6-3.3); Non-African American GFR(CKD) 95.7 (60.0-200.0); Potassium 4.4 mmol/L (3.5-5.5); Total Bilirubin 0.4 mg/dL (0.30-1.20); Total Protein 5.8 g/dL (6.2-8.2)
--- NOTE | 2021-07-28 11:42 | P.PN ---
Subjective Progress Note Date: 07/28/21 Patient seen and examined today. He is postop day #14 and left great toe amputation. States he does have some pain but it is well managed with his medications. He has been up to the restroom he is offloading on the front of his foot to his heel. I discussed with him that we want him to be completely o ffloading on that foot. Await recommendations from infectious disease on antibiotics and discharge timing. He is afebrile. No leukocytosis Objective - Vital Signs Vital signs: Vital Signs Temp 97.8 F 07/28/21 08:00 Pulse 67 07/28/21 08:00 Resp 18 07/28/21 08:00 BP 138/79 07/28/21 08:00 Pulse Ox 98 07/28/21 08:00 Intake & Output 07/27/21 07/28/21 07/28/21 18:59 06:59 18:59 Intake Total 400 0 240 Output Total 25 Balance 375 0 240 Intake: IV 400 0 Oral 240 Output: Estimated Blood Loss 25 Other: Voiding Method Toilet Toilet Toilet Urinal Urinal # Voids 4 3 - Exam General appearance: The patient is alert, oriented, appears in no acute distress. HET: Head is normocephalic and atraumatic. Pupils are equal and reactive. Extremities: Normal skin color and turgor. No cyanosis, rash, ulceration, clubbing, or edema. Left foot dressing clean dry and intact. Neurological: No focal deficits. Decreased sensation in lower extremities due to neuropathy. - Labs CBC & Chem 7: 07/28/21 06:57 07/28/21 06:57 Labs: Abnormal Lab Results - Last 24 Hours (Table) 07/27/21 07/27/21 07/28/21 Range/Units 11:52 20:26 06:57 POC Glucose (mg/dL) 106 H 136 H (75-99) mg/dL AST 13 L (14-35) U/L Total Protein 5.8 L (6.2-8.2) g/dL Microbiology - Last 24 Hours (Table) 07/25/21 18:21 Blood Culture - Preliminary Blood No Growth after 48 hours 07/25/21 18:00 Blood Culture - Preliminary Blood No Growth after 48 hours Assessment and Plan Assessment: 1. Postop day #1 left great toe amputation 2. Left great toe osteomyelitis, likely chronic 3. Left foot/great toe cellulitis 4. Type 2 diabetes mellitus 5. Peripheral neuropathy Plan: 1. Consult to physical therapy, nonweightbearing left lower extremity 2. Postop shoe 3. Dressing change every other day Adaptic gauze and Kerlix 4. Refer to recommendations from infectious disease for antibiotic therapy 5. Patient is cleared from vascular surgery for discharge tomorrow if otherwise medically cleared 6. Patient to follow-up with Dr. Nicole in 2 weeks 7. Patient to be nonweightbearing on discharge, recommend walker and offloading boot to left foot Thank you for this consultation. The impression and plan of care has been dictated as directed. Dr. Perry I performed a history and examination of this patient, discussed the same with the dictator. I agree with the dictator's note ,documented as a scribe. Any additional findings or plans will be noted.
[2021-07-28 11:53] LABS: Glucose,Whole Blood 93 mg/dL (75-99)
[2021-07-28] MEDS ORDERED: HYDROmorphone 0.5 MG/0.5 ML SYRINGE IVP PRN (12:28)
[2021-07-28] MEDS ORDERED: LACTATED RINGERS 1,000 ML IV SCH (12:28)
[2021-07-28] MEDS ORDERED: LIDOCAINE 1% (10MG/ML) FOR IV START INTRADERMA PRN (12:28)
[2021-07-28] MEDS ORDERED: ONDANSETRON 4 MG/2 ML VIAL IVP ONE (12:28)
[2021-07-28] MEDS ORDERED: fentaNYL (PF) 50 MCG/ML 2 ML AMP IV PRN (12:28)
[2021-07-28] MEDS ORDERED: MIDAZOLAM 2 MG/2 ML VIAL IV PRN (12:28)
[2021-07-28] MEDS ORDERED: DEXAMETHASONE SOD PHOSPHATE 4 MG/ML 1 ML VIAL IV ONE (12:28)
--- NOTE | 2021-07-28 15:04 | P.PN ---
Subjective Progress Note Date: 07/28/21 No new complaints today. pending pending final antibiotic recommendations. Gen: awake, alert HEENT: normocephalic, atraumatic, good hearing acuity, moist mucous membranes Resp: good air exchange, breathing comfortably with no accessory muscle use CVS: good distal perfusion x 4, GI: soft, NTTP, ND : no SPT, no CVAT, larsen catheter not present MSK: no pitting edema, no clubbing Neuro: non-focal, moving all extremities Psych: cooperative, euthymic mood Assessment/plan: Left toe cellulitis with underlying osteomyelitis in type II diabetic with peripheral neuropathy -Vascular surgery following, tentative plan is for debridement with possible left great toe amputation later this afternoon at 1 PM -Continue with antibiotics: Vancomycin -Follow up blood cultures -Infectious disease following, appreciate further recommendations. Type II [id number] diabetes mellitus -Patient does not take any medications, diet controlled -Hemoglobin A1c 6.6% -At this time we will continue with glycemic protocol and NovoLog sliding scale DVT prophylaxis: Heparin CODE STATUS: Full Code Discussed with: Patient Anticipated discharge date: Clinical course to determine Anticipated discharge place: Release in custody of [facility] as patient is currently incarcerated at [facility] Objective - Vital Signs Vital signs: Vital Signs Temp 97.8 F 07/28/21 08:00 Pulse 67 07/28/21 08:00 Resp 18 07/28/21 08:00 BP 138/79 07/28/21 08:00 Pulse Ox 98 07/28/21 08:00 Intake & Output 07/27/21 07/28/21 07/28/21 18:59 06:59 18:59 Intake Total 400 0 240 Output Total 25 Balance 375 0 240 Intake: IV 400 0 Oral 240 Output: Estimated Blood Loss 25 Other: Voiding Method Toilet Toilet Toilet Urinal Urinal # Voids 4 3 - Labs CBC & Chem 7: 07/28/21 06:57 07/28/21 06:57 Labs: Abnormal Lab Results - Last 24 Hours (Table) 07/27/21 07/28/21 Range/Units 20:26 06:57 POC Glucose (mg/dL) 136 H (75-99) mg/dL AST 13 L (14-35) U/L Total Protein 5.8 L (6.2-8.2) g/dL Microbiology - Last 24 Hours (Table) 07/25/21 18:21 Blood Culture - Preliminary Blood No Growth after 48 hours 07/25/21 18:00 Blood Culture - Preliminary Blood No Growth after 48 hours
[2021-07-28 17:11] LABS: Glucose,Whole Blood 148 mg/dL (75-99)
[2021-07-28 20:01] LABS: Glucose,Whole Blood 76 mg/dL (75-99)
--- NOTE | 2021-07-28 22:43 | P.PN ---
Subjective Progress Note Date: 07/28/21 Principal diagnosis: Left big toe osteomyelitis Patient is a 61-year-old male with a past medical history significant for diabetes mellitus patient did have a history of left big toe Osteomyelitis that has been going on for more than a year presented to the hospital with acute worsening with swelling and redness. Patient is status post left big toe amputation completed her vascular surgery on 07/27/2021 On today's evaluation that is 07/28/2021, the patient remains to be afebrile, the patient is breathing comfortably, the patient denies having any chest pain or shortness of breath or cough no abdominal pain , the patient pain to the left big toe amputation site is currently controlled Objective - Vital Signs Vital signs: Vital Signs Temp 97.8 F 07/28/21 08:00 Pulse 67 07/28/21 08:00 Resp 18 07/28/21 08:00 BP 138/79 07/28/21 08:00 Pulse Ox 98 07/28/21 08:00 Intake & Output 07/27/21 07/28/21 07/28/21 18:59 06:59 18:59 Intake Total 400 0 240 Output Total 25 Balance 375 0 240 Intake: IV 400 0 Oral 240 Output: Estimated Blood Loss 25 Other: Voiding Method Toilet Toilet Toilet Urinal Urinal # Voids 4 3 - Exam GENERAL DESCRIPTION: A middle-aged male lying in bed in no distress RESPIRATORY SYSTEM: Unlabored breathing , decreased breath sounds at bases HEART: S1 S2 regular rate and rhythm , ABDOMEN: Soft , no tenderness EXTREMITIES: No edema feet, left big toe amputation site is currently dressed no drainage on the dressing - Labs CBC & Chem 7: 07/28/21 06:57 07/28/21 06:57 Labs: Abnormal Lab Results - Last 24 Hours (Table) 07/27/21 07/28/21 Range/Units 20:26 06:57 POC Glucose (mg/dL) 136 H (75-99) mg/dL AST 13 L (14-35) U/L Total Protein 5.8 L (6.2-8.2) g/dL Microbiology - Last 24 Hours (Table) 07/25/21 18:21 Blood Culture - Preliminary Blood No Growth after 48 hours 07/25/21 18:00 Blood Culture - Preliminary Blood No Growth after 48 hours Assessment and Plan (1) Diabetic infection of left foot Current Visit: No Status: Acute Code(s): E11.628 - TYPE 2 DIABETES MELLITUS WITH OTHER SKIN COMPLICATIONS; L08.9 - LOCAL INFECTION OF THE SKIN AND SUBCUTANEOUS TISSUE, UNSP SNOMED Code(s): 03753927 Plan: 1patient presented to hospital left big toe swelling and redness with abnormal x-ray suspicious for osteomyelitis in this patient was admitted to this facility in November 2019 at that point he did have osteomyelitis however the patient left AGAINST MEDICAL ADVICE and was subsequently lost to follow-up culture that was positive for MSSA in this patient currently incarcerated and will need to cover for resistant gram-positive such as MRSA 2-local culture has been requested but not obtained 3Patient is status post amputation of his left big toe, no cultures 4-patient to continue with vancomycin pharmacy to dose target trough of 15 while watching kidney function and vancomycin trough closely however as the infected part has been removed there will be no need for IV antibiotics on discharge Time with Patient: Less than 30
[2021-07-29] MEDS: VANCOMYCIN 1,750 MG in SODIUM CHLORIDE 0.9% 500 ML 500 ML IVPB SCH ×2 (00:33→07:21)
[2021-07-29] MEDS: MORPHINE SULFATE 2 MG/ML SYRINGE IV PRN ×2 (00:34→07:20)
[2021-07-29] MEDS: SODIUM CHLORIDE 0.9% 1,000 ML IV SCH (05:16)
[2021-07-29 06:51] VITALS: BP 132/85; RESP 18; TEMP 98
[2021-07-29 06:52] LABS: African American GFR (CKD) >90 (>60 ml/min/1.73 sqM); Non-African American GFR(CKD) >90 (>60 ml/min/1.73 sqM)
[2021-07-29] MEDS ORDERED: VANCOMYCIN TROUGH DUE 1 EACH MISC MISCELLANE ONE (07:00)
[2021-07-29 07:01] LABS: Glucose,Whole Blood 96 mg/dL (75-99)
[2021-07-29] MEDS: INSULIN ASPART (NovoLOG) 100 UNIT/ML VIAL SQ SCH (07:17)
[2021-07-29] MEDS: HEPARIN SODIUM,PORCINE/PF 5,000 UNIT/0.5 ML SYRINGE SQ SCH (07:21)
[2021-07-29 09:33] VITALS: PULSE 78
[2021-07-29 11:37] LABS: Glucose,Whole Blood 106 mg/dL (75-99)
--- NOTE | 2021-07-29 13:19 | P.DS ---
Providers Date of admission: 07/26/21 03:19 Expected date of discharge: 07/29/21 Attending physician: Elizabeth Ovalles MD Consults: 07/25/21 21:00 Consult Physician Routine Consulting Provider: Zeferino Alonso Consult Reason/Comments: Left great toe cellulitis, chronic osteomyelitis great left toe Do you want consulting provider notified?: Yes 07/26/21 03:16 Consult Physician Urgent Consulting Provider: Tania Larsen Consult Reason/Comments: L toe osteomyelitis Do you want consulting provider notified?: Yes Primary care physician: Stated None Hospital Course: Left toe cellulitis with underlying osteomyelitis in type II diabetic with peripheral neuropathy Type II omq-ofpzjng-waogctjcq diabetes mellitus The patient is a 61-year-old male with a PMH of type II DM with peripheral neuropathy status post right second toe amputation, currently incarcerated at [facility] who was brought in by [facility] officer due to left great toe swelling and redness. Left foot x-ray revealed findings consistent with chronic osteomyelitis of the left first toe. Laboratory evaluation was remarkable for leukocytosis of 12.0, with CRP 1.9. Patient was admitted under our services with consultation to infectious disease and vascular surgery. Pt was treated with IV vancomycin, and underwent left great toe amputation with vascular surgery on 07/27 with good margins. Pt was discharged on 07/29 after wound dressing change, with instructions for weight offloading boot and walker. Final recommendations for abx were bactrim DS BID x 7 days. Hgb A1c was 6.6%, so pt was started on metformin and provided information packet on diabetes. I spent 38 minutes coordinating this complex discharge Gen: awake, alert HEENT: normocephalic, atraumatic, good hearing acuity, moist mucous membranes Resp: good air exchange, breathing comfortably with no accessory muscle use CVS: good distal perfusion x 4, GI: soft, NTTP, ND : no SPT, no CVAT, larsen catheter not present MSK: no pitting edema, no clubbing Neuro: non-focal, moving all extremities Psych: cooperative, euthymic mood Patient Condition at Discharge: Good Plan - Discharge Summary Discharge Rx Participant: No New Discharge Prescriptions: New Sulfamethox-Tmp 800-160Mg [Bactrim DS 800-160 mg] 1 tab PO Q12HR 7 Days #14 tab metFORMIN HCL [Glucophage] 500 mg PO BID #60 tab HYDROcodone/APAP 5-325MG [[place] 5-325] 1 tab PO Q4HR PRN 3 Days #18 tab PRN Reason: Pain Acetaminophen Tab [Tylenol] 650 mg PO Q6HR PRN tab PRN Reason: Mild Pain Or Fever > 100.5 Discharge Medication List Acetaminophen Tab [Tylenol] 650 mg PO Q6HR PRN tab 07/29/21 [Rx] HYDROcodone/APAP 5-325MG [[place] 5-325] 1 tab PO Q4HR PRN 3 Days #18 tab 07/29/21 [Rx] Sulfamethox-Tmp 800-160Mg [Bactrim DS 800-160 mg] 1 tab PO Q12HR 7 Days #14 tab 07/29/21 [Rx] metFORMIN HCL [Glucophage] 500 mg PO BID #60 tab 07/29/21 [Rx] Follow up Appointment(s)/Referral(s): Tania Larsen DO [STAFF PHYSICIAN] - 2 Weeks None,Stated [Primary Care Provider] - 1-2 days Mayra Li [NON-STAFF] - As Needed (Supplier of offloading boot) Activity/Diet/Wound Care/Special Instructions: Non-weightbearing to Left foot, offloading boot if possible May shower no tub baths or soaking Dressing change every other day with Adaptic gauze over sutures and kerlix wrap Discharge Disposition: DC/TRANSFER COURT/LAW
[2021-07-29] MEDS ORDERED: VANCOMYCIN 1,500 MG in SODIUM CHLORIDE 0.9% 250 ML IVPB SCH (20:00)
== END 2021-07-29 12:22 | DRG 617 ==
LOC: EC 15:19 → 6NMEDSUR 20:59 → OBSVTOIN 07-26 03:19
PROVIDERS: ADMIT Internal Medicine; ATTEND Internal Medicine
PROC: 0Y6Q0Z0 Detachment at Left 1st Toe, Complete, Open Approach (ICD-10-PCS; principal; 2021-07-27 16:20)
DX: E11.628 Type 2 diabetes mellitus with other skin complications (principal); M86.672 Other chronic osteomyelitis, left ankle and foot; E11.42 Type 2 diabetes mellitus with diabetic polyneuropathy; E11.69 Type 2 diabetes mellitus with other specified complication; I10 Essential (primary) hypertension; J44.9 Chronic obstructive pulmonary disease, unspecified; L03.032 Cellulitis of left toe; M21.962 Unspecified acquired deformity of left lower leg; N41.1 Chronic prostatitis; Z79.84 Long term (current) use of oral hypoglycemic drugs; Z83.3 Family history of diabetes mellitus; Z87.891 Personal history of nicotine dependence; Z88.2 Allergy status to sulfonamides; Z87.19 Personal history of other diseases of the digestive system; Z79.899 Other long term (current) drug therapy
CPT/HCPCS: 36415; 80048; 80053; 80202; 82565; 83036; 83735; 85025; 85027; 85652; 86140; 87040; 96365; 96366; 99285

== ENCOUNTER 2023-04-28 08:50 | Emergency (ER) | payer OTHER ==
[2023-04-28 09:07] VITALS: RESP 24; TEMP 97.6
[2023-04-28] MEDS ORDERED: ALBUTEROL NEBULIZED 2.5 MG/3 ML INHALATION STA (09:11)
[2023-04-28] MEDS ORDERED: methylPREDNISolone SOD SUCCI 125 MG/2 ML VIAL IV STA (09:11)
[2023-04-28] MEDS ORDERED: IPRATROPIUM 0.5 MG/2.5 ML NEBU INHALATION STA (09:11)
--- NOTE | 2023-04-28 09:22 | ED ---
General Adult HPI - General Chief complaint: Shortness of Breath Stated complaint: DIFFICULTY BREATHING Time Seen by Provider: 04/28/23 08:55 Source: patient, RN notes reviewed, old records reviewed Mode of arrival: ambulatory Limitations: no limitations - History of Present Illness Initial comments: This is a 62-year-old male who presents to the emergency department complaining that he's been having difficulty breathing over the last 2 days. Patient states he is a smoker girlfriend in the room states he smokes 3 packs a day. Patient states she's had COPD for a long time and it just seems to be getting worse per patient states he does have a cough but he hasn't had any fever. Patient states he has had no chest pain or palpitation. Patient denies any lightheadedness or dizziness. Patient denies any sputum production. Patient denies any abdominal pain. Patient states she does have a little congestion as well. - Related Data Previous Rx's Medication Instructions Recorded Acetaminophen Tab [Tylenol] 650 mg PO Q6HR PRN tab 07/29/21 HYDROcodone/APAP 5-325MG [[place]man 1 tab PO Q4HR PRN 3 Days #18 tab 07/29/21 5-325] Sulfamethox-Tmp 800-160Mg [Bactrim 1 tab PO Q12HR 7 Days #14 tab 07/29/21 DS 800-160 mg] metFORMIN HCL [Glucophage] 500 mg PO BID #60 tab 07/29/21 Albuterol Inhaler [Ventolin Hfa 2 puff INHALATION RT-QID #18 gm 04/28/23 Inhaler] Azithromycin [Zithromax Tri-Rex (3 500 mg PO DAILY 3 Days #3 tab 04/28/23 tabs)] predniSONE [Deltasone] 40 mg PO DAILY #8 tab 04/28/23 Allergies Allergy/AdvReac Type Severity Reaction Status Date / Time Sulfa (Sulfonamide Allergy Anaphylaxis Verified 04/28/23 08:56 Antibiotics) Review of Systems ROS Statement: Those systems with pertinent positive or pertinent negative responses have been documented in the HPI. ROS Other: All systems not noted in ROS Statement are negative. 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",herniated disc History of Any Multi-Drug Resistant Organisms: None Reported Past Surgical History: Hernia Repair Past Psychological History: No Psychological Hx Reported Smoking Status: Former smoker Past Alcohol Use History: Occasional Past Drug Use History: None Reported - Past Family History Mother Family Medical History: Cancer Additional Family Medical History / Comment(s): small cell carcinoma Father Family Medical History: Diabetes Mellitus Sister(s) Family Medical History: Cancer General Exam - General Exam Comments Initial Comments: GENERAL: Patient is well-developed and well-nourished. Patient is nontoxic and well- hydrated and is in mild distress. ENT: Neck is soft and supple. No significant lymphadenopathy is noted. Oropharynx is clear. Moist mucous membranes. Neck has full range of motion without eliciting any pain. EYES: The sclera were anicteric and conjunctiva were pink and moist. Extraocular movements were intact and pupils were equal round and reactive to light. Eyelids were unremarkable. PULMONARY: Expiratory wheezing CARDIOVASCULAR: There is a regular rate and rhythm without any murmurs gallops or rubs. ABDOMEN: Soft and nontender with normal bowel sounds. SKIN: Skin is clear with no lesions or rashes and otherwise unremarkable. NEUROLOGIC: Patient is alert and oriented x3. Cranial nerves II through XII are grossly intact. Motor and sensory are also intact. Normal speech, volume and content. Symmetrical smile. MUSCULOSKELETAL: Normal extremities with adequate strength and full range of motion. LYMPHATICS: No significant lymphadenopathy is noted PSYCHIATRIC: Normal psychiatric evaluation. Limitations: no limitations Course Vital Signs 04/28/23 04/28/23 04/28/23 08:53 09:18 09:42 Temperature 97.6 F Pulse Rate 103 H 100 100 Respiratory 24 Rate Blood Pressure 133/83 O2 Sat by Pulse 94 L Oximetry 04/28/23 10:49 Temperature Pulse Rate 101 H Respiratory Rate Blood Pressure 130/86 O2 Sat by Pulse 92 L Oximetry Medical Decision Making - Medical Decision Making EKG was interpreted by myself. EKG shows a sinus rhythm at 95 bpm OK interval 270 QRS is under 10 QT interval 363 QTC is 416. Patient's EKG shows no ST segment elevation or depression Was pt. sent in by a medical professional or institution (, PA, [employer], urgent care, hospital, or [facility]...) When possible be specific @ -No Did you speak to anyone other than the patient for history (EMS, parent, family, police, friend...)? What history was obtained from this source @ -No Did you review nursing and triage notes (agree or disagree)? Why? @ -I reviewed and agree with nursing and triage notes Were old charts reviewed (outside hosp., previous admission, EMS record, old EKG, old radiological studies, urgent care reports/EKG's, [facility] records)? Report findings @ -No old charts were reviewed Differential Diagnosis (chest pain, altered mental status, abdominal pain women, abdominal pain men, vaginal bleeding, weakness, fever, dyspnea, syncope, headache, dizziness, GI bleed, back pain, seizure, CVA, palpatations, mental health, musculoskeletal)? @ -Differential Dyspnea: Coronary syndrome, arrhythmia, tamponade, asthma, COPD, pulmonary embolism, pneumonia, pneumothorax, pulmonary effusion, anaphylaxis, diabetic ketoacidosis, flailed chest, pulmonary contusion, diaphragmatic rupture, anemia, neuromuscular, this is not meant to be an all-inclusive list. EKG interpreted by me (3pts min.). @ -As above X-rays interpreted by me (1pt min.). @ -Chest x-ray shows no acute abnormality CT interpreted by me (1pt min.). @ -None done U/S interpreted by me (1pt. min.). @ -None done What testing was considered but not performed or refused? (CT, X-rays, U/S, labs)? Why? @ -None What meds were considered but not given or refused? Why? @ -None Did you discuss the management of the patient with other professionals (professionals i.e. , PA, [employer], lab, RT, psych nurse, family welfare social work professor, pattern designer, teacher, grant officer, case finisher)? Give summary @ -No Was smoking cessation discussed for >3mins.? @ -No Was critical care preformed (if so, how long)? @ -No Were there social determinants of health that impacted care today? How? (Homelessness, low income, unemployed, alcoholism, drug addiction, transportation, low edu. Level, literacy, decrease access to med. care, alf, re hab)? @ -No Was there de-escalation of care discussed even if they declined (Discuss DNR or withdrawal of care, Hospice)? DNR status @ -No What co-morbidities impacted this encounter? (DM, HTN, Smoking, COPD, CAD, Cancer, CVA, ARF, Chemo, Hep., AIDS, mental health diagnosis, sleep apnea, morbid obesity)? @ -None Was patient admitted / discharged? Hospital course, mention meds given and route, prescriptions, significant lab abnormalities, going to OR and other pertinent info. @ -Patient was given 2 breathing treatments in the emergency per as well as steroids. Patient was feeling considerably better one pack to listen to him he was moving much more area was oxygenating at 94% on room air. Patient felt good enough to go home. Because the patient she'll continue to give the patient 2 g Rocephin and we'll send the patient home with Zithromax Tri-Rex Undiagnosed new problem with uncertain prognosis? @ -No Drug Therapy requiring intensive monitoring for toxicity (Heparin, Nitro, Insulin, Cardizem)? @ -No Were any procedures done? @ -No Diagnosis/symptom? @ -COPD exacerbation Acute, or Chronic, or Acute on Chronic? @ -Acute Uncomplicated (without systemic symptoms) or Complicated (systemic symptoms)? @ -Complicated Side effects of treatment? @ -No Exacerbation, Progression, or Severe Exacerbation? @ -No Poses a threat to life or bodily function? How? (Chest pain, [place], [place], pneumonia, PE, COPD, DKA, ARF, appy, cholecystitis, CVA, Diverticulitis, Homicidal, Suicidal, threat to staff... and all critical care pts) @ -No - Lab Data Result diagrams: 04/28/23 09:23 04/28/23 09:23 Lab Results 04/28/23 04/28/23 04/28/23 Range/Units 09: 09: 09:23 WBC 9.1 (3.8-10.6) k/uL RBC 4.91 (4.30-5.90) m/uL Hgb 17.2 (13.0-17.5) gm/dL Hct 49.5 (39.0-53.0) % MCV 100.8 H (80.0-100.0) fL MCH 35.0 (25.0-35.0) pg MCHC 34.7 (31.0-37.0) g/dL RDW 13.0 (11.5-15.5) % Plt Count 102 L (150-450) k/uL MPV 9.7 Neutrophils % 72 % Lymphocytes % 20 % Monocytes % 5 % Eosinophils % 1 % Basophils % 0 % Neutrophils # 6.6 (1.3-7.7) k/uL Lymphocytes # 1.9 (1.0-4.8) k/uL Monocytes # 0.4 (0-1.0) k/uL Eosinophils # 0.1 (0-0.7) k/uL Basophils # 0.0 (0-0.2) k/uL PT 9.7 L (10.0-12.5) sec INR 0.9 (<1.2) APTT 24.9 (22.0-30.0) sec Sodium 137 (137-145) mmol/L Potassium 3.8 (3.5-5.1) mmol/L Chloride 101 (98-107) mmol/L Carbon Dioxide 25 (22-30) mmol/L Anion Gap 11 mmol/L BUN 22 H (9-20) mg/dL Creatinine 1.28 H (0.66-1.25) mg/dL Est GFR (CKD-EPI)AfAm 69 (>60 ml/min/1.73 sqM) Est GFR (CKD-EPI)NonAf 59 (>60 ml/min/1.73 sqM) Glucose 167 H (74-99) mg/dL Plasma Lactic Acid Fan (0.7-2.0) mmol/L Calcium 8.5 (8.4-10.2) mg/dL Magnesium 1.8 (1.6-2.3) mg/dL Total Bilirubin 0.9 (0.2-1.3) mg/dL AST 31 (17-59) U/L ALT 26 (4-49) U/L Alkaline Phosphatase 70 (38-126) U/L Troponin I (0.000-0.034) ng/mL NT-Pro-B Natriuret Pep 191 pg/mL Total Protein 6.1 L (6.3-8.2) g/dL Albumin 3.6 (3.5-5.0) g/dL Influenza Type A (PCR) (Not Detectd) Influenza Type B (PCR) (Not Detectd) RSV (PCR) (Not Detectd) SARS-CoV-2 (PCR) (Not Detectd) 04/28/23 04/28/23 04/28/23 Range/Units 09:23 09:23 09:23 WBC (3.8-10.6) k/uL RBC (4.30-5.90) m/uL Hgb (13.0-17.5) gm/dL Hct (39.0-53.0) % MCV (80.0-100.0) fL MCH (25.0-35.0) pg MCHC (31.0-37.0) g/dL RDW (11.5-15.5) % Plt Count (150-450) k/uL MPV Neutrophils % % Lymphocytes % % Monocytes % % Eosinophils % % Basophils % % Neutrophils # (1.3-7.7) k/uL Lymphocytes # (1.0-4.8) k/uL Monocytes # (0-1.0) k/uL Eosinophils # (0-0.7) k/uL Basophils # (0-0.2) k/uL PT (10.0-12.5) sec INR (<1.2) APTT (22.0-30.0) sec Sodium (137-145) mmol/L Potassium (3.5-5.1) mmol/L Chloride (98-107) mmol/L Carbon Dioxide (22-30) mmol/L Anion Gap mmol/L BUN (9-20) mg/dL Creatinine (0.66-1.25) mg/dL Est GFR (CKD-EPI)AfAm (>60 ml/min/1.73 sqM) Est GFR (CKD-EPI)NonAf (>60 ml/min/1.73 sqM) Glucose (74-99) mg/dL Plasma Lactic Acid Fan 1.2 (0.7-2.0) mmol/L Calcium (8.4-10.2) mg/dL Magnesium (1.6-2.3) mg/dL Total Bilirubin (0.2-1.3) mg/dL AST (17-59) U/L ALT (4-49) U/L Alkaline Phosphatase (38-126) U/L Troponin I <0.012 (0.000-0.034) ng/mL NT-Pro-B Natriuret Pep pg/mL Total Protein (6.3-8.2) g/dL Albumin (3.5-5.0) g/dL Influenza Type A (PCR) Not Detected (Not Detectd) Influenza Type B (PCR) Not Detected (Not Detectd) RSV (PCR) Not Detected (Not Detectd) SARS-CoV-2 (PCR) Not Detected (Not Detectd) Disposition Clinical Impression: COPD exacerbation Disposition: HOME SELF-CARE Instructions (If sedation given, give patient instructions): COPD (Chronic Obstructive Pulmonary Disease) (ED) Prescriptions: predniSONE [Deltasone] 40 mg PO DAILY #8 tab Albuterol Inhaler [Ventolin Hfa Inhaler] 2 puff INHALATION RT-QID #18 gm Azithromycin [Zithromax Tri-Rex (3 tabs)] 500 mg PO DAILY 3 Days #3 tab Is patient prescribed a controlled substance at d/c from ED?: No Referrals: Nonstaff,Physician [Primary Care Provider] - 1-2 days Time of Disposition: 11:14
[2023-04-28 09:42] LABS: Basophils % (A) 0 %; Eosinophils # (A) 0.1 k/uL (0-0.7); Eosinophils % (A) 1 %; HCT 49.5 % (39.0-53.0); HGB 17.2 gm/dL (13.0-17.5); Lymphocytes # (A) 1.9 k/uL (1.0-4.8); Lymphocytes % (A) 20 %; MCHC 34.7 g/dL (31.0-37.0); MCV 100.8 fL (80.0-100.0); Mean Platelet Volume 9.7; Monocytes # (A) 0.4 k/uL (0-1.0); Monocytes % (A) 5 %; Neutrophils # (A) 6.6 k/uL (1.3-7.7); Neutrophils % (A) 72 %; Platelet Count 102 k/uL (150-450); RBC 4.91 m/uL (4.30-5.90); WBC 9.1 k/uL (3.8-10.6)
[2023-04-28 09:54] LABS: INR 0.9 (<1.2); Partial Thromboplastin Time 24.9 sec (22.0-30.0); Prothrombin Time 9.7 sec (10.0-12.5)
[2023-04-28 10:20] LABS: ALT 26 U/L (4-49); AST 31 U/L (17-59); African American GFR (CKD) 69 (>60 ml/min/1.73 sqM); Albumin 3.6 g/dL (3.5-5.0); Alkaline Phosphatase 70 U/L (38-126); Anion Gap 11 mmol/L; Blood Urea Nitrogen 22 mg/dL (9-20); Calcium 8.5 mg/dL (8.4-10.2); Carbon Dioxide 25 mmol/L (22-30); Chloride 101 mmol/L (98-107); Glucose 167 mg/dL (74-99); Magnesium 1.8 mg/dL (1.6-2.3); Non-African American GFR(CKD) 59 (>60 ml/min/1.73 sqM); Potassium 3.8 mmol/L (3.5-5.1); Sodium 137 mmol/L (137-145); Total Bilirubin 0.9 mg/dL (0.2-1.3); Total Protein 6.1 g/dL (6.3-8.2)
[2023-04-28 10:27] LABS: NT-Pro-B-Type Natriuretic Pept 191 pg/mL
--- NOTE | 2023-04-28 10:29 | XR ---
EXAMINATION TYPE: XR chest 2V DATE OF EXAM: 04/28/2023 10:09 AM CLINICAL INDICATION:Male, 62 years old with history of difficulty breathing; [facility] COMPARISON: Chest radiographs from 08/23/2022. TECHNIQUE: XR chest 2V Frontal and lateral views of the chest. FINDINGS: Lungs/Pleura: There is flattening of the diaphragm with increased lucency of the lungs. No evidence o f pneumothorax, pleural effusion or focal consolidation. Pulmonary vascularity: Unremarkable. Heart/mediastinum: Cardiomediastinal silhouette is unremarkable. Musculoskeletal: No acute osseous pathology. IMPRESSION: 1. No acute cardiopulmonary disease process. 2. COPD changes.
[2023-04-28] MEDS ORDERED: cefTRIAXone IN SWFI 1,000 MG/10 ML SYRINGE IVP STA (10:52)
[2023-04-28 11:00] VITALS: BP 130/86; PULSE 101
== END 2023-04-28 11:32 | disposition home or self-care (01) ==
LOC: EC 08:50
DX: J44.1 Chronic obstructive pulmonary disease with (acute) exacerbation (principal); E11.9 Type 2 diabetes mellitus without complications; I10 Essential (primary) hypertension; Z87.891 Personal history of nicotine dependence; Z79.84 Long term (current) use of oral hypoglycemic drugs; Z88.2 Allergy status to sulfonamides; Z20.822 Contact with and (suspected) exposure to COVID-19
CPT/HCPCS: 36415; 94644; 93005; 83880; 80053; 83605; 83735; 84484; 85025; 85610; 85730; 87636; 71046; 99285; 96374; 96375; J2930; J0696